=== PATIENT | male | born 1975 | race Caucasian/White ===

== ENCOUNTER 2018-12-15 23:21 | Emergency (ER) | payer OTHER ==
[~2018-12-15] VITALS: Ht 182.9 cm; Wt 113.6 kg
[2018-12-15 23:39] VITALS: BP 184/106
[2018-12-15] MEDS ORDERED: acetaminophen 325mg tablet PO ONE (23:55)
[2018-12-16] MEDS ORDERED: DOXY100C43 PO (00:24)
== END 2018-12-16 01:00 | disposition home or self-care (01) ==
LOC: ER 23:22
DX: S93.492A Sprain of other ligament of left ankle, initial encounter (principal); S90.112A Contusion of left great toe without damage to nail, initial encounter; S30.810A Abrasion of lower back and pelvis, initial encounter; S40.212A Abrasion of left shoulder, initial encounter; J45.909 Unspecified asthma, uncomplicated; Z91.030 Bee allergy status; V19.88XA Pedal cyclist (driver) (passenger) injured in other specified transport accidents, initial encounter; Y93.55 Activity, bike riding; Y92.413 State road as the place of occurrence of the external cause; Y99.9 Unspecified external cause status
CPT/HCPCS: 73610; 73630; 99283

== ENCOUNTER 2019-01-01 18:17 | Inpatient (IN) | payer OTHER, SELFPAY ==
[~2019-01-01] VITALS: Ht 182.9 cm; Wt 135.9 kg
[2019-01-01 19:08] LABS: BASOPHILS # (AUTO) 0.1 X10'3 (0-0.2); BASOPHILS % (AUTO) 0.4 % (0-1); EOSINOPHILS # (AUTO) 0.3 X10'3 (0-0.9); HEMATOCRIT 43.1 % (42.0-52.0); HEMOGLOBIN 14.1 g/dl (14.0-17.9); LYMPHOCYTES # (AUTO) 1.3 X10'3 (1.1-4.8); LYMPHOCYTES % (AUTO) 4.3 % (21-51); MEAN CORPUSCULAR HGB CONC 32.7 g/dL (33.0-36.5); MEAN CORPUSCULAR VOLUME 88.6 FL (78-98); MEAN PLATELET VOLUME 9.5 FL (7.4-10.4); MONOCYTES # (AUTO) 1.1 X10'3 (0-0.9); MONOCYTES % (AUTO) 3.7 % (2-12); NEUTROPHILS # (AUTO) 27.8 X10'3 (1.8-7.7); NEUTROPHILS % (AUTO) 90.6 % (42-75); PLATELET COUNT 573 X10'3 (140-440); RED BLOOD COUNT 4.86 X10'6 (4.70-6.10)
[2019-01-01 19:11] LABS: WHITE BLOOD COUNT 30.7 X10'3 (4.5-11.0)
[2019-01-01] MEDS ORDERED: CefTRIAXone/D5W-Rocephin 1gm 50 ML IV ONE (19:15)
[2019-01-01] MEDS ORDERED: azithromycin/NS 500mg/250ml 250 ML IV ONE (19:15)
[2019-01-01] MEDS ORDERED: normal saline 1000ML IV soln IVB ONE ×2 (19:15→19:45)
[2019-01-01 19:16] LABS: ALANINE AMINOTRANSFERASE 152 U/L (12-78); ALBUMIN 2.3 G/DL (3.4-5.0); ALBUMIN/GLOBULIN RATIO 0.4 (1.1-1.5); ALKALINE PHOSPHATASE 191 IU/L (46-116); ANION GAP 4 (8-16); ASPARTATE AMINO TRANSFERASE 56 U/L (10-37); BILIRUBIN,TOTAL 0.6 MG/DL (0.1-1.0); BLOOD UREA NITROGEN 54 MG/DL (7-18); BUN/CREATININE RATIO 43.5 (5.4-32.0); CALCIUM 9.7 MG/DL (8.5-10.1); CHLORIDE 99 MMOL/L (99-107); CREATININE 1.24 MG/DL (0.60-1.10); GLUCOSE 170 MG/DL (70-104); POTASSIUM 5.1 MMOL/L (3.5-5.1); SODIUM 134 MMOL/L (135-145); TOTAL CARBON DIOXIDE 30.7 MMOL/L (24-32); TOTAL PROTEIN 7.5 G/DL (6.4-8.2); eGFR 64 ML/MIN
[2019-01-01 19:49] LABS: ANISOCYTOSIS 1+; PLATELET ESTIMATE INCREASED; TOTAL CELLS COUNTED 100
[2019-01-01] MEDS ORDERED: diltiazem 5mg/ml 5ml inj. IV ONE ×3 (20:35→23:45)
[2019-01-01 21:42] LABS: CLARITY,URINE CLOUDY (Clear); COLOR,URINE YELLOW (Yellow); GLUCOSE, URINE NEGATIVE (Neg); KETONES,URINE NEGATIVE (Neg); LEUKOCYTE ESTERASE ,URINE NEGATIVE (Neg); NITRITES, URINE NEGATIVE (Neg); OCCULT BLOOD,URINE SMALL (Neg); PROTEIN,URINE 30 mg/dl (Neg); UROBILINOGEN,URINE 0.2 E.U/dL (0.2-1.0)
[2019-01-01 21:57] LABS: UA COLLECTION TYPE NON-SPECIFIED
[2019-01-01 21:58] LABS: AMORPHOUS URATES 4+; BACTERIA,URINE FEW /HPF (Neg); RBC,URINE NONE SEEN /HPF (0-2); SQUAMOUS EPITHELIAL CELL,UR FEW /LPF (FEW); WBC,URINE 0-4 /HPF (0-4)
[2019-01-01 21:59] LABS: URINE AMPHETAMINE SCREEN NEGATIVE (Neg); URINE BARBITUATE SCREEN NEGATIVE (Neg); URINE BENZODIAZEPINES SCREEN NEGATIVE (Neg); URINE CANNABINOID SCREEN NEGATIVE (Neg); URINE COCAINE SCREEN POSITIVE (Neg); URINE METHADONE SCREEN NEGATIVE (Neg); URINE OPIATE SCREEN POSITIVE (Neg); URINE PHENCYCLIDINE SCREEN NEGATIVE (Neg)
[2019-01-01] MEDS ORDERED: morphine 4 MG/ML inj SYRINge IV ONE (22:00)
[2019-01-01] MEDS ORDERED: amiodarone/D5 360MG/200ML BAG 200 ML IV SCH ×2 (22:10→22:13)
[2019-01-01] MEDS ORDERED: amiodarone 150mg/dext, iso-os 100 ML IV ONE (22:10)
[2019-01-01] MEDS ORDERED: ondansetron/PF 4mg/2ml inj IV PRN (22:45)
[2019-01-01] MEDS ORDERED: morphine 2 MG/ML inj. syringe IV PRN (22:45)
[2019-01-01] MEDS ORDERED: mag hydrox/Alum hydrox/simeth 30ml oral suspension PO PRN (22:45)
[2019-01-01] MEDS ORDERED: acetaminophen 325mg tablet PO PRN ×2 (22:45)
[2019-01-01] MEDS ORDERED: HYDROcodone/acetaminophen 5mg/325mg tablet PO PRN (22:45)
[2019-01-01] MEDS: normal saline 1000ml 1,000 ML IV SCH (23:20)
[2019-01-01] MEDS: diltiazem CD 120mg capsule (once-daily) PO SCH (23:20)
--- NOTE | 2019-01-01 23:24 | NUR ---
Patient is not responding to the current Amioderone infusion. His HR is staying right around 155 with the drip. The admitting hospitalist ELEONORA is aware of the patient's condition. no additional orders given
[2019-01-01] MEDS: morphine 2 MG/ML inj. syringe IV PRN (23:28)
--- NOTE | 2019-01-01 23:54 | NUR ---
DR. CREWS WAS MADE AWARE OF PATIETN'S CONDITION, HE ORDERED TO STOP THE AMIODERONE INFUSION AND TO GIVE PATIENT 10MG OF CARDIZEM IV PUSH
[2019-01-02] MEDS ORDERED: HYDROmorphone inj. 0.5 MG/0.5 ML DISP.SYRIN IV ONE (00:05)
[2019-01-02] MEDS ORDERED: METF500T7 PO (00:27)
[2019-01-02] MEDS ORDERED: LOSA1TAB41 PO (00:27)
--- NOTE | 2019-01-02 03:36 | NUR ---
DR CREWS PAGED FOR CRITICAL VALUE 5
[2019-01-02] MEDS ORDERED: morphine 10mg/ml inj. IV ONE (04:00)
--- NOTE | 2019-01-02 04:45 | NUR ---
PATIENT CONTIUES TO GET UP AND DISCONNECT HIMSELF TO WALK TO THE BATHROOM AFTER BEING ADVISED NOT TO DUE TO HIS CONDITION.
[2019-01-02] MEDS: HYDROcodone/acetaminophen 10/325mg tab PO PRN (05:24)
[2019-01-02] MEDS: levoFLOXACIN-Levaquin 250mg/D5 50 ML IV SCH (07:14)
[2019-01-02] MEDS: diltiazem CD 120mg capsule (once-daily) PO SCH (07:14)
[2019-01-02] MEDS: heparin, porcine 5000 units/ml vial SQ SCH ×2 (07:15→20:13)
[2019-01-02] MEDS: morphine 2 MG/ML inj. syringe IV PRN ×5 (07:17→23:48)
--- NOTE | 2019-01-02 08:16 | NUR ---
paged Dr. Jerry regaring patient's HR ranges 100-160's still on afib,denies cp but + pleuritic pain managed with morphine.
[2019-01-02 08:28] LABS: BASOPHILS # (AUTO) 0.1 X10'3 (0-0.2); BASOPHILS % (AUTO) 0.4 % (0-1); EOSINOPHILS # (AUTO) 0.3 X10'3 (0-0.9); EOSINOPHILS % (AUTO) 1.2 % (0-6); HEMATOCRIT 39.4 % (42.0-52.0); LYMPHOCYTES # (AUTO) 1.2 X10'3 (1.1-4.8); LYMPHOCYTES % (AUTO) 4.4 % (21-51); MEAN CORPUSCULAR HEMOGLOBIN 28.8 PG (27.0-31.0); MEAN CORPUSCULAR VOLUME 87.4 FL (78-98); MEAN PLATELET VOLUME 9.1 FL (7.4-10.4); MONOCYTES # (AUTO) 1.4 X10'3 (0-0.9); MONOCYTES % (AUTO) 5.1 % (2-12); NEUTROPHILS # (AUTO) 24.9 X10'3 (1.8-7.7); NEUTROPHILS % (AUTO) 88.9 % (42-75); PLATELET COUNT 484 X10'3 (140-440); RED CELL DISTRIBUTION WIDTH 16.9 % (11.5-14.5)
[2019-01-02 08:40] LABS: ALANINE AMINOTRANSFERASE 119 U/L (12-78); ALBUMIN/GLOBULIN RATIO 0.4 (1.1-1.5); ALKALINE PHOSPHATASE 104 IU/L (46-116); ANION GAP 6 (8-16); ASPARTATE AMINO TRANSFERASE 47 U/L (10-37); BILIRUBIN,TOTAL 0.6 MG/DL (0.1-1.0); BLOOD UREA NITROGEN 35 MG/DL (7-18); BUN/CREATININE RATIO 37.6 (5.4-32.0); CALCIUM 8.4 MG/DL (8.5-10.1); CHLORIDE 102 MMOL/L (99-107); CREATININE 0.93 MG/DL (0.60-1.10); GLUCOSE 157 MG/DL (70-104); SODIUM 134 MMOL/L (135-145); TOTAL CARBON DIOXIDE 26.3 MMOL/L (24-32); TOTAL PROTEIN 6.6 G/DL (6.4-8.2); eGFR 89 ML/MIN
[2019-01-02] MEDS: normal saline 1000ml 1,000 ML IV SCH ×2 (08:43→18:43)
--- NOTE | 2019-01-02 09:38 | NUR ---
paged Dr. Jerry again since pt hr still 100-160's.
--- NOTE | 2019-01-02 09:40 | NUR ---
pt up to the bathroom.
[2019-01-02] MEDS: magnesium hydroxide 30ml (MOM) UD suspension PO PRN (09:51)
[2019-01-02] MEDS: vancomycin/NS 1 GM ADD-VANTAGE 250 ML IV SCH ×2 (09:51→12:13)
[2019-01-02] MEDS: piperacillin/tazo 4.5gm/100ml 100 ML IV SCH ×4 (09:51→23:48)
[2019-01-02] MEDS: diltiazem-NS 100mg/100ml 100 ML IV SCH (10:10)
[2019-01-02] MEDS ORDERED: iohexol 350MG/ML 100ml bottle IV ONE (12:07)
--- NOTE | 2019-01-02 12:20 | NUR ---
paged dr. acharya to change rate for greg hammond.
--- NOTE | 2019-01-02 12:31 | NUR ---
SPOKE TO DR IZAGUIRRE ORDERED CARDIZEM DRIP CHANGED TO 7.5ML/HOUR.
--- NOTE | 2019-01-02 13:30 | NUR ---
pt arrived to floor in stable condition, in aflutter, lungs diminished in bases, abdomen distended and firm, on cardizem @ 5, o2 3l nc, at bedside. pt placed on mobile. pt oriented to room, bed in low position, call light in reach. upon assessment pt has a scab on left elbow, genitalia reddened and edematous. pt has a blue ring on base of penis, upon asking pt he states that his "cock ring never comes off" pt unwilling to take it off at this time.
[2019-01-02 13:35] VITALS: BP 115/74
[2019-01-02 15:00] VITALS: BP 137/56
--- NOTE | 2019-01-02 15:57 | NUR ---
asked pt again about removing the ring on his penis. he states it has been on for 5 years and never has had a problem. he does not want it removed. he is refusing to have it removed at this time.
[2019-01-02 17:00] VITALS: BP 131/86
--- NOTE | 2019-01-02 17:11 | NUR ---
per HEIKE Aranda in IR they will do soy tomorrow, hold pm heparin Addendum: 01/02/19 at 1717 by Jennifer Taveras RN hold am heparin, not pm
[2019-01-02 18:00] VITALS: BP 141/89
--- NOTE | 2019-01-02 18:20 | NUR ---
Problems reprioritized. Patient report given, questions answered & plan of care reviewed with HEIKE Thurston.
--- NOTE | 2019-01-02 18:35 | NUR ---
orientee documentation: I have reviewed and agree with all interventions, assessments performed and documented by HEIKE Duque .
--- NOTE | 2019-01-02 19:40 | NUR ---
PAGER ID: [phone] MESSAGE: re: Fer tellez [id number]. would like another dose of milk of mag for constipation.
[2019-01-02 22:00] VITALS: BP 114/62
[2019-01-03] VITALS (25 sets, daily range): BP systolic 120–169; BP diastolic 57–122
[2019-01-03] MEDS: HYDROcodone/acetaminophen 10/325mg tab PO PRN (01:35)
[2019-01-03] MEDS: diltiazem-NS 100mg/100ml 100 ML IV SCH ×3 (03:44→21:11)
[2019-01-03] MEDS: normal saline 1000ml 1,000 ML IV SCH (04:43)
--- NOTE | 2019-01-03 05:00 | NUR ---
Paged regarding pt's high sustained heart rate. Pt up to the bathroom multiple times tonight for long periods.
[2019-01-03] MEDS: morphine 2 MG/ML inj. syringe IV PRN ×5 (05:30→23:56)
[2019-01-03 06:11] LABS: BASOPHILS # (AUTO) 0.1 X10'3 (0-0.2); BASOPHILS % (AUTO) 0.4 % (0-1); EOSINOPHILS # (AUTO) 0.6 X10'3 (0-0.9); HEMOGLOBIN 13.5 g/dl (14.0-17.9); LYMPHOCYTES # (AUTO) 1.3 X10'3 (1.1-4.8); LYMPHOCYTES % (AUTO) 4.7 % (21-51); MEAN CORPUSCULAR HEMOGLOBIN 29.4 PG (27.0-31.0); MEAN CORPUSCULAR HGB CONC 33.1 g/dL (33.0-36.5); MEAN CORPUSCULAR VOLUME 88.8 FL (78-98); MEAN PLATELET VOLUME 9.2 FL (7.4-10.4); MONOCYTES # (AUTO) 1.2 X10'3 (0-0.9); MONOCYTES % (AUTO) 4.2 % (2-12); NEUTROPHILS # (AUTO) 25.1 X10'3 (1.8-7.7); NEUTROPHILS % (AUTO) 88.7 % (42-75); PLATELET COUNT 463 X10'3 (140-440); RED BLOOD COUNT 4.61 X10'6 (4.70-6.10); RED CELL DISTRIBUTION WIDTH 17.2 % (11.5-14.5)
--- NOTE | 2019-01-03 06:11 | NUR ---
PAGER ID: [phone] MESSAGE: re: Fer Carlsop [id number]. heart rate remains in the 150s.
[2019-01-03] MEDS ORDERED: diltiazem 5mg/ml 5ml inj. IV ONE ×2 (06:15→09:20)
[2019-01-03 06:16] LABS: WHITE BLOOD COUNT 28.3 X10'3 (4.5-11.0)
--- NOTE | 2019-01-03 06:16 | NUR ---
PAGER ID: [phone] MESSAGE: re: Fer tellez. wbc 20.3
[2019-01-03 06:33] LABS: ALANINE AMINOTRANSFERASE 116 U/L (12-78); ALBUMIN 2.1 G/DL (3.4-5.0); ALBUMIN/GLOBULIN RATIO 0.4 (1.1-1.5); ALKALINE PHOSPHATASE 107 IU/L (46-116); ANION GAP 5 (8-16); ASPARTATE AMINO TRANSFERASE 48 U/L (10-37); BILIRUBIN,TOTAL 0.6 MG/DL (0.1-1.0); BLOOD UREA NITROGEN 24 MG/DL (7-18); BUN/CREATININE RATIO 24.2 (5.4-32.0); CALCIUM 9.8 MG/DL (8.5-10.1); CHLORIDE 102 MMOL/L (99-107); CREATININE 0.99 MG/DL (0.60-1.10); GLUCOSE 164 MG/DL (70-104); POTASSIUM 5.2 MMOL/L (3.5-5.1); SODIUM 137 MMOL/L (135-145); TOTAL CARBON DIOXIDE 30.3 MMOL/L (24-32); eGFR 83 ML/MIN
[2019-01-03 06:50] LABS: TOTAL CELLS COUNTED 100
[2019-01-03 06:51] LABS: PLATELET ESTIMATE INCREASED
[2019-01-03 06:52] LABS: ANISOCYTOSIS 1+; TOXIC GRANULATION 1+
--- NOTE | 2019-01-03 07:00 | NUR ---
received report from Rian Thurston. pt currently in aflutter rapid rate, Karena got order for cardizem 10mg push, pt on cardizem gtt @ 5. went in to see pt. i asked him if he had used any drugs this am, pt admitted that he used cocaine this am, I asked him if he had any more and he said he had a small amount and a percocet. pt gave me a small glass vial with white powder in it and a white pill he said was percocet. educated pt in detail about the use of drugs and his unstable medical condition. security was called and glass vial with white powder in it and white pill given to security. security in to see pt. they went through his belongings and no other drugs were found.
--- NOTE | 2019-01-03 07:12 | NUR ---
PAGER ID: [phone] MESSAGE: aditi kimberly [phone] please call me re Fer tellez HR sustaining 150's despite Cardizem gtt and push. please call so I can explain full sitiuation
[2019-01-03] MEDS: diltiazem CD 120mg capsule (once-daily) PO SCH (07:22)
--- NOTE | 2019-01-03 07:30 | NUR ---
Dr. Aparicio in to see pt. she is aware of pts drug use and current condition. RN in room with MD. pt refusing to let us examine his genetalia.
[2019-01-03] MEDS: heparin, porcine 5000 units/ml vial SQ SCH ×2 (08:00→19:32)
--- NOTE | 2019-01-03 08:03 | NUR ---
PAGER ID: [phone] MESSAGE: aditi [email or web address] can I bring ekg to you to review on geoff please
[2019-01-03] MEDS: levoFLOXACIN-Levaquin 250mg/D5 50 ML IV SCH (09:00)
[2019-01-03] MEDS: piperacillin/tazo 4.5gm/100ml 100 ML IV SCH ×3 (09:00→23:55)
[2019-01-03 09:14] LABS: GLUCOSE,BODY FLUID 79 MG/DL
[2019-01-03 09:21] LABS: LYMPHOCYTES,BODY FLUID 1 %; MONOCYTES,BODY FLUID 3 %; NEUTROPHILS,BODY FLUID 96 %
[2019-01-03 09:22] LABS: BF RBC COUNT 1450 /CU MM; BF WBC COUNT 1180 /CU MM (0-1000); BFAPPEAR HAZY; BFCOLOR YELLOW; BFVOLUME 33 ML
--- NOTE | 2019-01-03 10:51 | NUR ---
PAGER ID: [phone] MESSAGE: aditi rosa [phone] Fer tellez HR still sustaining 110's -140's after 2nd push of cardizem
[2019-01-03] MEDS ORDERED: metoprolol tartrate 25mg tablet PO SCH (11:19)
--- NOTE | 2019-01-03 12:32 | NUR ---
Initial: Pt admit with sepsis with multifocal pneumonia. Pt seen at bedside provided with verbal protein education only as pt declined written protein education stating he "knows all about protein". Pt currently on a regular diet with documented 100% PO intake x 1 meal. Pt endorses a good appetite stating he's still hungry following meals, pt agreeable to double protein TID, d/w dietary. Pt denies food allergies and reports some difficulty chewing, pt requests ground food, d/w dietary. Documented LBM 01/03 however pt reports LBM 01/02. RD contact information provided. Will continue to follow. Recommendations: 1) Continue with regular diet 2) Double protein TID 3) Grind all food d/t difficulty chewing per pt request 4) Wt per rx Addendum: 01/03/19 at [address] Amended: Links added.
[2019-01-03] MEDS ORDERED: MESSAGE TO PHARMACY PO ONE (13:40)
[2019-01-03] MEDS ORDERED: dextrose ORAL solution 15 GM/59 ML bottle PO PRN ×2 (13:40)
[2019-01-03] MEDS ORDERED: dextrose 50%-water 50ml dispensing syringe IV PRN ×2 (13:40)
[2019-01-03] MEDS ORDERED: glucagon, human recombinant 1mg kit SUBCUT PRN (13:40)
[2019-01-03 14:04] LABS: HEMOGLOBIN A1C 6.9 % (4.5-6.2)
[2019-01-03] MEDS: HYDROchlorothiazide 12.5mg capsule PO SCH (15:09)
[2019-01-03] MEDS: losartan 50mg tablet PO SCH (15:09)
--- NOTE | 2019-01-03 15:38 | NUR ---
pt told me he taken steroids at home tesnoester 150mg injection daily and trenacetate 150mg mg injectable daily. Dr. Aparicio notified and no orders received PAGER ID: [phone] MESSAGE: aditi rosa [phone] Fer tellez said he takes daily injectable steroids. could this be playing a factor being off?
--- NOTE | 2019-01-03 17:37 | NUR ---
paged dr canseco PAGER ID: [phone] MESSAGE: aditi rosa [phone] Fer miranda HR sustaining 150's x 15min
--- NOTE | 2019-01-03 18:12 | NUR ---
paged dr. canseco PAGER ID: [phone] MESSAGE: aditi kimberly [phone] geoff HR sustaining 150's, also can he have Ativan or something like that? and can change diet to carb control?
--- NOTE | 2019-01-03 18:20 | NUR ---
dr. aparicio notified pt sustaining heart rate 150's. per Dr. Aparicio she has given lots of meds and not ordering any others for heart rate at this time. she does want to order ativan 0.5 iv q6hrs prn
--- NOTE | 2019-01-03 18:46 | NUR ---
Problems reprioritized. Patient report given, questions answered & plan of care reviewed with HEIKE COLE.
--- NOTE | 2019-01-03 18:52 | NUR ---
Patient in room PCU 3027. I have received report from Jennifer BURROUGHS and had the opportunity to ask questions and assume patient care.
[2019-01-03] MEDS ORDERED: VANCOMYCIN LEVEL IV ONE (19:30)
[2019-01-03] MEDS: LORazepam 2 mg/ml vial IV PRN (19:30)
[2019-01-03] MEDS: metoprolol tartrate 50mg tablet PO SCH (19:33)
[2019-01-03] MEDS: insulin glargine (Lantus) pen - multi-dose SQ SCH (21:00)
[2019-01-04] VITALS (9 sets, daily range): BP systolic 105–145; BP diastolic 46–107
[2019-01-04] MEDS: LORazepam 2 mg/ml vial IV PRN ×4 (01:34→22:33)
[2019-01-04] MEDS: morphine 2 MG/ML inj. syringe IV PRN ×4 (05:04→23:22)
[2019-01-04 05:21] LABS: BASOPHILS # (AUTO) 0.1 X10'3 (0-0.2); BASOPHILS % (AUTO) 0.4 % (0-1); EOSINOPHILS # (AUTO) 0.5 X10'3 (0-0.9); HEMATOCRIT 40.8 % (42.0-52.0); HEMOGLOBIN 13.7 g/dl (14.0-17.9); LYMPHOCYTES # (AUTO) 1.1 X10'3 (1.1-4.8); LYMPHOCYTES % (AUTO) 4.1 % (21-51); MEAN CORPUSCULAR HEMOGLOBIN 29.5 PG (27.0-31.0); MEAN CORPUSCULAR HGB CONC 33.5 g/dL (33.0-36.5); MEAN PLATELET VOLUME 9.4 FL (7.4-10.4); MONOCYTES # (AUTO) 1.4 X10'3 (0-0.9); MONOCYTES % (AUTO) 5.5 % (2-12); NEUTROPHILS # (AUTO) 22.8 X10'3 (1.8-7.7); PLATELET COUNT 446 X10'3 (140-440); RED BLOOD COUNT 4.63 X10'6 (4.70-6.10); RED CELL DISTRIBUTION WIDTH 16.9 % (11.5-14.5)
[2019-01-04 05:27] LABS: WHITE BLOOD COUNT 25.9 X10'3 (4.5-11.0)
[2019-01-04 05:46] LABS: ALANINE AMINOTRANSFERASE 110 U/L (12-78); ALBUMIN 1.9 G/DL (3.4-5.0); ALBUMIN/GLOBULIN RATIO 0.4 (1.1-1.5); ALKALINE PHOSPHATASE 107 IU/L (46-116); ANION GAP 6 (8-16); ASPARTATE AMINO TRANSFERASE 49 U/L (10-37); BILIRUBIN,TOTAL 0.6 MG/DL (0.1-1.0); BLOOD UREA NITROGEN 19 MG/DL (7-18); BUN/CREATININE RATIO 22.6 (5.4-32.0); CALCIUM 9.2 MG/DL (8.5-10.1); CHLORIDE 101 MMOL/L (99-107); CREATININE 0.84 MG/DL (0.60-1.10); GLUCOSE 194 MG/DL (70-104); POTASSIUM 4.7 MMOL/L (3.5-5.1); SODIUM 133 MMOL/L (135-145); TOTAL CARBON DIOXIDE 25.6 MMOL/L (24-32); TOTAL PROTEIN 6.9 G/DL (6.4-8.2); eGFR > 90 ML/MIN
[2019-01-04 05:52] LABS: TOTAL CELLS COUNTED 100
[2019-01-04 05:53] LABS: ANISOCYTOSIS 1+; PLATELET ESTIMATE INCREASED; TOXIC GRANULATION 1+
--- NOTE | 2019-01-04 06:18 | NUR ---
Patient in room PCU 3027. I have received report from Mari BURROUGHS and had the opportunity to ask questions and assume patient care.
--- NOTE | 2019-01-04 06:23 | NUR ---
Problems reprioritized. Patient report given, questions answered & plan of care reviewed with Rosemarie BURROUGHS.
[2019-01-04] MEDS: HYDROchlorothiazide 12.5mg capsule PO SCH (07:42)
[2019-01-04] MEDS: losartan 50mg tablet PO SCH (07:42)
[2019-01-04] MEDS: metoprolol tartrate 50mg tablet PO SCH ×2 (07:42→19:15)
[2019-01-04] MEDS: heparin, porcine 5000 units/ml vial SQ SCH ×2 (07:43→19:14)
[2019-01-04] MEDS: levoFLOXACIN-Levaquin 250mg/D5 50 ML IV SCH (07:43)
[2019-01-04] MEDS: piperacillin/tazo 4.5gm/100ml 100 ML IV SCH ×4 (09:26→23:22)
[2019-01-04] MEDS: diltiazem-NS 100mg/100ml 100 ML IV SCH ×3 (10:22→22:33)
[2019-01-04] MEDS: HYDROcodone/acetaminophen 10/325mg tab PO PRN ×3 (10:22→21:45)
--- NOTE | 2019-01-04 14:00 | NUR ---
Patient refused AM and afternoon insulin coverage, stating "I take metformin at home and don't want to get hooked on that insulin stuff." Patient educated provided, patient states he will reconsider accepting insulin depending on his next Accucheck result. Will continue to monitor patient and re-educate as needed.
[2019-01-04] MEDS: diltiazem 30mg tablet PO SCH ×2 (14:32→19:14)
[2019-01-04] MEDS: magnesium hydroxide 30ml (MOM) UD suspension PO PRN (16:15)
--- NOTE | 2019-01-04 17:37 | NUR ---
Page sent to Dr. Stephen: PAGER ID: [phone] MESSAGE: [phone] Fer Villarreal: Patient is wheezy, he has a nebulizer at home. Can I order respiratory treatments? Thanks, Rosemarie [phone]
[2019-01-04] MEDS: lactobacillus rhamnosus 10,000 MMU CELLS/CAPSULE PO SCH (19:15)
[2019-01-04] MEDS: insulin Lispro (HumaLOG) vial - multi-dose SQ SCH (19:37)
[2019-01-04] MEDS: albuterol 2.5 MG/3 ML nebule NEB PRN (21:03)
[2019-01-04] MEDS: insulin glargine (Lantus) pen - multi-dose SQ SCH (21:48)
[2019-01-05] VITALS (12 sets, daily range): BP systolic 119–163; BP diastolic 54–92
[2019-01-05] MEDS: diltiazem 30mg tablet PO SCH ×3 (01:47→16:30)
[2019-01-05] MEDS: HYDROcodone/acetaminophen 10/325mg tab PO PRN ×3 (02:30→17:19)
--- NOTE | 2019-01-05 03:05 | NUR ---
Problems reprioritized. Patient report given, questions answered & plan of care reviewed with Lolly BURROUGHS
[2019-01-05] MEDS: albuterol 2.5 MG/3 ML nebule NEB PRN ×2 (04:33→17:41)
[2019-01-05] MEDS: LORazepam 2 mg/ml vial IV PRN ×3 (04:47→22:11)
[2019-01-05] MEDS: morphine 2 MG/ML inj. syringe IV PRN ×4 (04:47→19:32)
--- NOTE | 2019-01-05 06:30 | NUR ---
Patient in room PCU 3027. I have received report from HEIKE Ambrocio and had the opportunity to ask questions and assume patient care. Pt awake. Significant other at bedside. IV running. Will continue to monitor and assess.
[2019-01-05] MEDS: levoFLOXACIN-Levaquin 250mg/D5 50 ML IV SCH (07:08)
[2019-01-05] MEDS: piperacillin/tazo 4.5gm/100ml 100 ML IV SCH ×2 (07:08→16:31)
[2019-01-05] MEDS: lactobacillus rhamnosus 10,000 MMU CELLS/CAPSULE PO SCH ×2 (07:09→19:33)
[2019-01-05] MEDS: HYDROchlorothiazide 12.5mg capsule PO SCH (07:10)
[2019-01-05] MEDS: metoprolol tartrate 50mg tablet PO SCH ×2 (07:10→19:33)
[2019-01-05] MEDS: losartan 50mg tablet PO SCH (07:10)
[2019-01-05] MEDS: heparin, porcine 5000 units/ml vial SQ SCH ×2 (07:12→19:37)
[2019-01-05] MEDS ORDERED: VANCOMYCIN LEVEL IV ONE (07:30)
[2019-01-05 07:57] LABS: BASOPHILS # (AUTO) 0.1 X10'3 (0-0.2); BASOPHILS % (AUTO) 0.5 % (0-1); EOSINOPHILS # (AUTO) 0.5 X10'3 (0-0.9); EOSINOPHILS % (AUTO) 2.5 % (0-6); HEMOGLOBIN 12.5 g/dl (14.0-17.9); LYMPHOCYTES # (AUTO) 0.9 X10'3 (1.1-4.8); LYMPHOCYTES % (AUTO) 4.1 % (21-51); MEAN CORPUSCULAR HEMOGLOBIN 29.2 PG (27.0-31.0); MEAN CORPUSCULAR VOLUME 88.6 FL (78-98); MEAN PLATELET VOLUME 8.7 FL (7.4-10.4); MONOCYTES # (AUTO) 1.2 X10'3 (0-0.9); MONOCYTES % (AUTO) 5.6 % (2-12); NEUTROPHILS # (AUTO) 18.3 X10'3 (1.8-7.7); NEUTROPHILS % (AUTO) 87.3 % (42-75); PLATELET COUNT 423 X10'3 (140-440); RED BLOOD COUNT 4.28 X10'6 (4.70-6.10); RED CELL DISTRIBUTION WIDTH 16.9 % (11.5-14.5)
[2019-01-05 08:18] LABS: ALANINE AMINOTRANSFERASE 106 U/L (12-78); ALBUMIN 1.9 G/DL (3.4-5.0); ALBUMIN/GLOBULIN RATIO 0.4 (1.1-1.5); ALKALINE PHOSPHATASE 98 IU/L (46-116); ANION GAP 3 (8-16); ASPARTATE AMINO TRANSFERASE 35 U/L (10-37); BILIRUBIN,TOTAL 0.5 MG/DL (0.1-1.0); BLOOD UREA NITROGEN 19 MG/DL (7-18); BUN/CREATININE RATIO 21.6 (5.4-32.0); CALCIUM 9.2 MG/DL (8.5-10.1); CHLORIDE 101 MMOL/L (99-107); CREATININE 0.88 MG/DL (0.60-1.10); GLUCOSE 221 MG/DL (70-104); POTASSIUM 4.6 MMOL/L (3.5-5.1); SODIUM 135 MMOL/L (135-145); TOTAL CARBON DIOXIDE 30.8 MMOL/L (24-32); TOTAL PROTEIN 6.4 G/DL (6.4-8.2); eGFR > 90 ML/MIN
[2019-01-05 08:19] LABS: VANCOMYCIN,TROUGH 9.2 UG/ML (6.0-14.0)
[2019-01-05] MEDS: insulin Lispro (HumaLOG) vial - multi-dose SQ SCH ×2 (09:28→18:58)
--- NOTE | 2019-01-05 13:06 | NUR ---
Sent to Dr Stephen PAGER ID: [phone] MESSAGE: RE: Fer Villarreal [phone]. HR maintaining above 150 bpm. About to take pt to radiology. Please advise. -Cleo [phone]
[2019-01-05] MEDS: diltiazem-NS 100mg/100ml 100 ML IV SCH ×2 (15:15→22:07)
--- NOTE | 2019-01-05 17:51 | NUR ---
PAGER ID: [phone] MESSAGE: Jailene BURROUGHS ext [phone] CAMILLE Boyle still has HR 150's even after Drip started and PO given. thank you
--- NOTE | 2019-01-05 18:00 | NUR ---
Patient in room PCU 3027. I have received report from Cleo Dent RN and had the opportunity to ask questions and assume patient care.
--- NOTE | 2019-01-05 18:22 | NUR ---
Spoke with Dr Stephen, increased Cardizem drip to 8mls/hr per MD order
--- NOTE | 2019-01-05 18:24 | NUR ---
Problems reprioritized. Patient report given, questions answered & plan of care reviewed with Padmini BURROUGHS. Patient stable at transfer of care. .
[2019-01-05] MEDS: linezolid 600mg/300ml PREMIX 300 ML IV SCH (19:38)
[2019-01-05] MEDS ORDERED: diltiazem 5mg/ml 5ml inj. IV ONE (20:25)
[2019-01-05] MEDS: insulin glargine (Lantus) pen - multi-dose SQ SCH (21:05)
--- NOTE | 2019-01-05 22:22 | NUR ---
Manually clicked administer to give ativan due to accidental throwing away of vial. HEIKE Hodges witnessed waist of vial and med.
[2019-01-06] VITALS (10 sets, daily range): BP systolic 124–155; BP diastolic 56–125
--- NOTE | 2019-01-06 | NUR ---
Spoke with Juan Jose about pt's HR being in 160's. He advised to increase drip to 10mg/hr and give a 10mg cardizem push. Shortly after speaking with him, pt's hr went down to 110-120. Held Cardizem, spoke with Dr. Ingram around 0130 and he advised to give the push and increase the drip.
[2019-01-06] MEDS: diltiazem 30mg tablet PO SCH ×4 (00:38→23:56)
[2019-01-06] MEDS: HYDROcodone/acetaminophen 10/325mg tab PO PRN ×5 (00:39→22:08)
[2019-01-06] MEDS: piperacillin/tazo 4.5gm/100ml 100 ML IV SCH ×3 (00:42→15:48)
[2019-01-06] MEDS: albuterol 2.5 MG/3 ML nebule NEB PRN ×3 (00:46→20:35)
[2019-01-06] MEDS: diltiazem-NS 100mg/100ml 100 ML IV SCH ×2 (01:06→22:01)
[2019-01-06] MEDS: morphine 2 MG/ML inj. syringe IV PRN ×4 (04:48→20:30)
--- NOTE | 2019-01-06 05:57 | NUR ---
Spoke with Dr. Ingram around 0500 informed him that patients HR has sustained in 80's for about 4 hrs. He advised to decrease cardizem drip to 5mg/hr.
--- NOTE | 2019-01-06 05:59 | NUR ---
Orientee documentation: I have reviewed and agree with all interventions, assessments performed and documented by Alexa BURROUGHS. Medication Administration: For this medication-pass time frame, all medication were reviewed, dispensed, administered and documented per hospital policy by .
--- NOTE | 2019-01-06 06:23 | NUR ---
Problems reprioritized. Patient report given, questions answered & plan of care reviewed with romie Houston.
[2019-01-06] MEDS: magnesium hydroxide 30ml (MOM) UD suspension PO PRN (08:12)
[2019-01-06] MEDS: levoFLOXACIN-Levaquin 250mg/D5 50 ML IV SCH (08:13)
[2019-01-06] MEDS: metoprolol tartrate 50mg tablet PO SCH ×2 (08:13→20:31)
[2019-01-06] MEDS: LORazepam 2 mg/ml vial IV PRN ×3 (08:13→22:07)
[2019-01-06] MEDS: losartan 50mg tablet PO SCH (08:13)
[2019-01-06] MEDS: HYDROchlorothiazide 12.5mg capsule PO SCH (08:13)
[2019-01-06] MEDS: linezolid 600mg/300ml PREMIX 300 ML IV SCH (08:13)
[2019-01-06] MEDS: heparin, porcine 5000 units/ml vial SQ SCH ×2 (08:14→20:30)
[2019-01-06] MEDS: lactobacillus rhamnosus 10,000 MMU CELLS/CAPSULE PO SCH ×2 (08:15→20:30)
[2019-01-06] MEDS: insulin Lispro (HumaLOG) vial - multi-dose SQ SCH ×3 (08:36→18:59)
[2019-01-06 09:32] LABS: BASOPHILS # (AUTO) 0.1 X10'3 (0-0.2); BASOPHILS % (AUTO) 0.3 % (0-1); EOSINOPHILS # (AUTO) 0.4 X10'3 (0-0.9); EOSINOPHILS % (AUTO) 2.1 % (0-6); HEMATOCRIT 39.2 % (42.0-52.0); HEMOGLOBIN 13.1 g/dl (14.0-17.9); LYMPHOCYTES # (AUTO) 0.7 X10'3 (1.1-4.8); LYMPHOCYTES % (AUTO) 4.2 % (21-51); MEAN CORPUSCULAR HEMOGLOBIN 29.9 PG (27.0-31.0); MEAN CORPUSCULAR HGB CONC 33.5 g/dL (33.0-36.5); MEAN CORPUSCULAR VOLUME 89.2 FL (78-98); MEAN PLATELET VOLUME 8.8 FL (7.4-10.4); MONOCYTES # (AUTO) 1.1 X10'3 (0-0.9); MONOCYTES % (AUTO) 6.5 % (2-12); NEUTROPHILS # (AUTO) 14.9 X10'3 (1.8-7.7); NEUTROPHILS % (AUTO) 86.9 % (42-75); PLATELET COUNT 389 X10'3 (140-440); RED CELL DISTRIBUTION WIDTH 16.9 % (11.5-14.5); WHITE BLOOD COUNT 17.1 X10'3 (4.5-11.0)
[2019-01-06 09:38] LABS: ANION GAP 2 (8-16); BLOOD UREA NITROGEN 15 MG/DL (7-18); BUN/CREATININE RATIO 19.7 (5.4-32.0); CHLORIDE 100 MMOL/L (99-107); CREATININE 0.76 MG/DL (0.60-1.10); GLUCOSE 230 MG/DL (70-104); MAGNESIUM 1.4 MG/DL (1.5-2.4); POTASSIUM 4.7 MMOL/L (3.5-5.1); SODIUM 132 MMOL/L (135-145); TOTAL CARBON DIOXIDE 30.4 MMOL/L (24-32); eGFR > 90 ML/MIN
--- NOTE | 2019-01-06 12:40 | NUR ---
osiel consult: Pt seen by GUDELIA for written/verbal zyvox ed w/ RD contact information provided. Pt has outside food brought in at beside; RD encouraged following diet guidelines to avoid potential hypertension. Addendum: 01/06/19 at [address] Amended: Links added.
--- NOTE | 2019-01-06 16:13 | NUR ---
Sent page to Dr. Stephen: PAGER ID: [phone] MESSAGE: [phone] Fer Villarreal: HR is up in the 150's 160's after the patient went to the bathroom, HR has been in the 80's all day. I'm suspicious that he used cocaine. Can we get a tox screen possibly? Thanks, Rosemarie [phone]
[2019-01-06] MEDS ORDERED: diltiazem-NS 100mg/100ml 100 ML IV SCH ×3 (17:50)
[2019-01-06] MEDS ORDERED: potassium CL 10mEq/100ml bag 100 ML IV PRN (18:10)
[2019-01-06] MEDS ORDERED: magnesium 2GM in 50ml NS 50 ML IV PRN (18:10)
[2019-01-06] MEDS ORDERED: magnesium 4gm in 100ml NS 100 ML IV PRN (18:10)
[2019-01-06] MEDS ORDERED: potassium Cl 20 mEq SR tablet PO PRN ×2 (18:10)
--- NOTE | 2019-01-06 18:37 | NUR ---
Orientee documentation: I have reviewed and agree with all interventions, assessments performed and documented by Laura BURROUGHS. Orientee Medication Administration: For this medication-pass time frame, all medication were reviewed, dispensed, administered and documented per hospital policy by Laura BURROUGHS
[2019-01-06] MEDS: furosemide 20 MG/2 ML vial IV SCH (20:29)
[2019-01-06] MEDS: linezolid 600mg tablet PO SCH (20:30)
[2019-01-06] MEDS: magnesium Cl slow-release 64mg tablet PO PRN ×2 (20:39→23:56)
[2019-01-06] MEDS: insulin glargine (Lantus) pen - multi-dose SQ SCH (20:57)
--- NOTE | 2019-01-06 21:40 | NUR ---
DR. NORTON NOTIFIED OF HEART RATE OF 150'S X'S 45 MINUTES--ORDERS RECEIVED
[2019-01-06] MEDS ORDERED: diltiazem 5mg/ml 5ml inj. IV ONE (21:45)
[2019-01-07] VITALS (10 sets, daily range): BP systolic 85–152; BP diastolic 40–95
[2019-01-07] MEDS: piperacillin/tazo 4.5gm/100ml 100 ML IV SCH ×3 (00:43→16:00)
[2019-01-07] MEDS: morphine 2 MG/ML inj. syringe IV PRN ×3 (00:43→12:21)
[2019-01-07] MEDS: HYDROcodone/acetaminophen 10/325mg tab PO PRN ×3 (02:09→12:49)
[2019-01-07] MEDS: albuterol 2.5 MG/3 ML nebule NEB PRN ×2 (04:06→13:11)
[2019-01-07] MEDS: LORazepam 2 mg/ml vial IV PRN ×2 (05:11→10:46)
[2019-01-07 05:48] LABS: BASOPHILS # (AUTO) 0.1 X10'3 (0-0.2); BASOPHILS % (AUTO) 0.7 % (0-1); EOSINOPHILS # (AUTO) 0.4 X10'3 (0-0.9); EOSINOPHILS % (AUTO) 2.4 % (0-6); HEMATOCRIT 38.2 % (42.0-52.0); HEMOGLOBIN 12.8 g/dl (14.0-17.9); LYMPHOCYTES # (AUTO) 0.9 X10'3 (1.1-4.8); LYMPHOCYTES % (AUTO) 5.3 % (21-51); MEAN CORPUSCULAR HEMOGLOBIN 29.4 PG (27.0-31.0); MEAN CORPUSCULAR HGB CONC 33.5 g/dL (33.0-36.5); MEAN CORPUSCULAR VOLUME 87.9 FL (78-98); MEAN PLATELET VOLUME 8.8 FL (7.4-10.4); MONOCYTES # (AUTO) 1.1 X10'3 (0-0.9); MONOCYTES % (AUTO) 6.9 % (2-12); NEUTROPHILS % (AUTO) 84.7 % (42-75); PLATELET COUNT 365 X10'3 (140-440); RED BLOOD COUNT 4.35 X10'6 (4.70-6.10); RED CELL DISTRIBUTION WIDTH 16.7 % (11.5-14.5); WHITE BLOOD COUNT 16.5 X10'3 (4.5-11.0)
--- NOTE | 2019-01-07 06:00 | NUR ---
Patient in room PCU 3027. I have received report from HEIKE De Souza and had the opportunity to ask questions and assume patient care.
[2019-01-07 06:40] LABS: ALBUMIN 2.1 G/DL (3.4-5.0); ANION GAP 7 (8-16); BLOOD UREA NITROGEN 16 MG/DL (7-18); BUN/CREATININE RATIO 17.4 (5.4-32.0); CALCIUM 9.1 MG/DL (8.5-10.1); CHLORIDE 100 MMOL/L (99-107); CREATININE 0.92 MG/DL (0.60-1.10); GLUCOSE 228 MG/DL (70-104); MAGNESIUM 1.5 MG/DL (1.5-2.4); POTASSIUM 4.4 MMOL/L (3.5-5.1); SODIUM 135 MMOL/L (135-145); TOTAL CARBON DIOXIDE 28.2 MMOL/L (24-32); eGFR 90 ML/MIN
[2019-01-07] MEDS: diltiazem-NS 100mg/100ml 100 ML IV SCH (06:52)
--- NOTE | 2019-01-07 08:00 | NUR ---
Pt on Cardizem drip, will need to infuse IV Zosyn, notified patient of need to place new IV for Zosyn infusion. Pt refusing new IV at this time, states that he wants to talk to the doctor. Addendum: 01/07/19 at 1924 by Dayna Zarate RN 09 Notified of patient refusal of new IV, running cardizem at this time, cannot run zosyn. Per , stop cardizem drip as patient is on PO cardizem as well. Please notify MD if HR sustains over 110.
[2019-01-07] MEDS: metoprolol tartrate 50mg tablet PO SCH ×2 (08:29→20:00)
[2019-01-07] MEDS: lactobacillus rhamnosus 10,000 MMU CELLS/CAPSULE PO SCH ×2 (08:30→20:00)
[2019-01-07] MEDS: HYDROchlorothiazide 12.5mg capsule PO SCH (08:30)
[2019-01-07] MEDS: diltiazem 30mg tablet PO SCH ×2 (08:30→16:00)
[2019-01-07] MEDS: linezolid 600mg tablet PO SCH ×2 (08:30→20:00)
[2019-01-07] MEDS: losartan 50mg tablet PO SCH (08:30)
[2019-01-07] MEDS: heparin, porcine 5000 units/ml vial SQ SCH (08:31)
[2019-01-07] MEDS: furosemide 20 MG/2 ML vial IV SCH ×2 (08:31→20:00)
[2019-01-07] MEDS: insulin Lispro (HumaLOG) vial - multi-dose SQ SCH (08:39)
[2019-01-07] MEDS: magnesium hydroxide 30ml (MOM) UD suspension PO PRN (09:38)
--- NOTE | 2019-01-07 10:05 | NUR ---
Pt off unit for 2V CXR via wheelchair with O2 via NC Addendum: 01/07/19 at 1015 by Dayna Zarate RN 1013 Pt back to unit in stable condition. Addendum: 01/07/19 at 1924 by Dayna Zarate RN 1030 Bedding changed by staff aides, pt refusing hospital gown, wearing personal clothing.
[2019-01-07] MEDS ORDERED: levoFLOXACIN 750MG TABLET PO SCH (11:00)
--- NOTE | 2019-01-07 11:24 | NUR ---
PAGER ID: [phone] MESSAGE: [id number] Kropp. Moon [phone] Chest tube removed, won't stop bleeding, PHARMACY TECHNICIAN PER DIEM requesting you at bedside. Thanks
[2019-01-07 11:52] LABS: BASOPHILS % (AUTO) 0.2 % (0-1); EOSINOPHILS # (AUTO) 0.4 X10'3 (0-0.9); EOSINOPHILS % (AUTO) 2.3 % (0-6); HEMATOCRIT 36.8 % (42.0-52.0); HEMOGLOBIN 12.3 g/dl (14.0-17.9); LYMPHOCYTES # (AUTO) 0.8 X10'3 (1.1-4.8); LYMPHOCYTES % (AUTO) 4.8 % (21-51); MEAN CORPUSCULAR HEMOGLOBIN 29.3 PG (27.0-31.0); MEAN CORPUSCULAR HGB CONC 33.5 g/dL (33.0-36.5); MEAN CORPUSCULAR VOLUME 87.5 FL (78-98); MEAN PLATELET VOLUME 8.5 FL (7.4-10.4); MONOCYTES # (AUTO) 1.3 X10'3 (0-0.9); MONOCYTES % (AUTO) 7.7 % (2-12); NEUTROPHILS # (AUTO) 14.5 X10'3 (1.8-7.7); PLATELET COUNT 397 X10'3 (140-440); RED BLOOD COUNT 4.21 X10'6 (4.70-6.10); RED CELL DISTRIBUTION WIDTH 16.5 % (11.5-14.5)
--- NOTE | 2019-01-07 13:03 | NUR ---
PAGER ID: [phone] MESSAGE: [id number] Andre Villarreal Pt c/o 04/22 pain left upper shoulder after chest tube removal, unchanged by pain medication. Increasing SOB, satting 95% on RA, HR 80's. Please advise. Sarai [phone] Addendum: 01/07/19 at 1330 by Dayna Zarate RN 1307 at patient bedside, orders received for stat CXR and 2MG Iv dilaudid now, may repeat Q15Min up to 3 doses if needed.
[2019-01-07] MEDS ORDERED: HYDROmorphone 1 mg/ml syringe IV ONE ×2 (13:10→13:33)
--- NOTE | 2019-01-07 13:29 | NUR ---
PAGER ID: [phone] MESSAGE: [phone] Andre Villarreal CXR resulted.
[2019-01-07 13:52] LABS: ANISOCYTOSIS 1+; PLATELET ESTIMATE NORMAL
[2019-01-07 13:54] LABS: MICROCYTOSIS FEW; SPHEROCYTES 1+
--- NOTE | 2019-01-07 14:00 | NUR ---
PAGER ID: [phone] MESSAGE: [phone] Williams Villarreal. HR and pulse sustaining 160s, please advise. Sarai [phone]
[2019-01-07] MEDS ORDERED: albumin (Human) 5% 250ml 250 ML IV ONE (16:00)
--- NOTE | 2019-01-07 16:00 | NUR ---
Received verbal order to administer IV albumin now, 250mL 5% available. Per MD, monitor BP Q2-3min, administer further albumin if BP continues to drop. STAT chest/abdm/pelvis CT with contrast. Albumin infusing. Pt down to CT, SBP trending high 90's to 110's. Pt taken to OR, will be transferred to ICU s/p surgery. Care relinquished.
[2019-01-07] MEDS ORDERED: albumin (Human) 5% 250ml 500 ML IV ONE (16:06)
[2019-01-07] MEDS ORDERED: iohexol 300mg/ml 100ml inj. ONE (16:15)
[2019-01-07] MEDS ORDERED: vasoPRESSIN 20 units/ml inj. ONE (16:30)
[2019-01-07] MEDS ORDERED: aminocaproic acid 250 MG/1 ML inj. ONE (16:30)
[2019-01-07] MEDS ORDERED: sevoflurane 250ml liquid IH ONE (16:30)
[2019-01-07] MEDS ORDERED: rocuronium 10mg/ml inj IV ONE ×2 (16:30→17:46)
[2019-01-07] MEDS ORDERED: midazolam 2 mg/2 ml injection ONE (16:40)
[2019-01-07] MEDS ORDERED: fentaNYL /PF 50mcg/ml 5ml ampule ONE (16:40)
[2019-01-07] MEDS ORDERED: ceFAZolin inj. 2,000 MG in dextrose 5%-water 100 ML IV ONE (16:45)
[2019-01-07] MEDS ORDERED: NORepinephrine 1 mg/ml inj IV ONE (17:14)
[2019-01-07] MEDS ORDERED: sodium bicarbonate (8.4%) inj. 1 MEQ/ML ML ONE ×2 (17:46→18:58)
[2019-01-07] MEDS ORDERED: succinylcholine 20mg/ml inj IV ONE (17:46)
[2019-01-07] MEDS ORDERED: etomidate 2mg/ml inj. ONE (17:46)
[2019-01-07] MEDS ORDERED: phenylephrine 10mg/ml inj. ONE (17:47)
[2019-01-07 17:50] LABS: ABG BASE EXCESS 1.4 mmol/L (-2.0-3.0); ABG HCO3 28.1 mmol/L (22.0-26.0); ABG OXYGEN SATURATION 99.1 % (95-98); ABG PCO2 (T) 56.3 mmHg (35.0-48.0); ABG PH (T) 7.319 (7.350-7.450); ABG PO2 (T) 348.7 mmHg (83-108); FCOHb 0.8 % (0.5-1.5); FMetHb 0.3 % (0.3-1.12); PATIENT TEMPERATURE 37.5
[2019-01-07 18:08] LABS: BASOPHILS # (AUTO) 0.1 X10'3 (0-0.2); BASOPHILS % (AUTO) 0.3 % (0-1); EOSINOPHILS # (AUTO) 0.1 X10'3 (0-0.9); EOSINOPHILS % (AUTO) 0.3 % (0-6); HEMATOCRIT 29.3 % (42.0-52.0); HEMOGLOBIN 9.8 g/dl (14.0-17.9); LYMPHOCYTES # (AUTO) 0.8 X10'3 (1.1-4.8); MEAN CORPUSCULAR HEMOGLOBIN 29.6 PG (27.0-31.0); MEAN CORPUSCULAR HGB CONC 33.5 g/dL (33.0-36.5); MEAN CORPUSCULAR VOLUME 88.5 FL (78-98); MEAN PLATELET VOLUME 8.6 FL (7.4-10.4); MONOCYTES % (AUTO) 7.9 % (2-12); NEUTROPHILS # (AUTO) 22.5 X10'3 (1.8-7.7); NEUTROPHILS % (AUTO) 88.5 % (42-75); PLATELET COUNT 412 X10'3 (140-440); RED BLOOD COUNT 3.32 X10'6 (4.70-6.10); RED CELL DISTRIBUTION WIDTH 16.3 % (11.5-14.5)
[2019-01-07 18:10] LABS: WHITE BLOOD COUNT 25.4 X10'3 (4.5-11.0)
[2019-01-07 18:20] LABS: PARTIAL THROMBOPLASTIN TIME 24 SECONDS (22-32)
[2019-01-07] MEDS ORDERED: dextrose 5%-water 1,000 ML IV ONE (19:03)
[2019-01-07] MEDS ORDERED: gentamicin 40 MG/1 ML inj ONE (19:09)
[2019-01-07] MEDS ORDERED: clindamycin phosphate 150mg/ml inj. ONE (19:09)
[2019-01-07] MEDS ORDERED: insulin Lispro (HumaLOG) vial - multi-dose SQ PRN (19:10)
[2019-01-07] MEDS ORDERED: dextrose 50%-water 50ml dispensing syringe IV PRN (19:10)
[2019-01-07 19:16] LABS: ANISOCYTOSIS 1+; PLATELET ESTIMATE NORMAL; TOTAL CELLS COUNTED 100
[2019-01-07 19:17] LABS: SPHEROCYTES FEW
[2019-01-07 19:36] LABS: ISTAT CREATININE 1.3 mg/dL (0.8-1.3); ISTAT HGB 8.8 g/dl (14.0-18.0); ISTAT IONIZED CALCIUM 1.15 mmol/L (1.03-1.32); POC BUN/CREATININE RATIO 16.2 (5.4-32.0)
[2019-01-07 19:36] LABS: ISTAT HGB 10.5 g/dl (14.0-18.0); ISTAT IONIZED CALCIUM 1.21 mmol/L (1.03-1.32); ISTAT K 5.9 mmol/L (3.5-5.1)
[2019-01-07 19:36] LABS: ABG BASE EXCESS -0.2 mmol/L (-2.0-3.0); ABG HCO3 24.3 mmol/L (22.0-26.0); ABG PCO2 (T) 39.8 mmHg (35.0-48.0); ABG PH (T) 7.406 (7.350-7.450); ABG PO2 (T) 139.1 mmHg (83-108); FCOHb 0.8 % (0.5-1.5); FMetHb 0.3 % (0.3-1.12); FO2Hb 96.9 % (94-100); PATIENT TEMPERATURE 37.4; TOTAL HEMOGLOBIN 9.7 G/dl (14.0-18.0)
[2019-01-07] MEDS ORDERED: midazolam 100mg in NS 100ml 100 ML IV PRN (20:55)
[2019-01-07] MEDS ORDERED: fentaNYL/PF 50MCG/1 ML 2ML syringe IV PRN (20:55)
[2019-01-07] MEDS ORDERED: propofol 1000mg/100ml bottle 100 ML IV ONE (21:00)
--- NOTE | 2019-01-07 21:00 | NUR ---
pt arrived from OR at this time. vasopressin and levo in use. HR 130-140's. Brusett present. gave order for chest tubes to water seal. wishes to wean levo off before titrating vasopressin.
[2019-01-07] MEDS ORDERED: CADD PCA waste documentation MC PRN (21:05)
[2019-01-07 21:25] LABS: ABG BASE EXCESS -0.6 mmol/L (-2.0-3.0); ABG HCO3 26.8 mmol/L (22.0-26.0); ABG OXYGEN SATURATION 94.1 % (95-98); ABG PCO2 (T) 57.9 mmHg (35.0-48.0); ABG PH (T) 7.283 (7.350-7.450); ABG PO2 (T) 87.8 mmHg (83-108); FCOHb 0.8 % (0.5-1.5); FMetHb 0.3 % (0.3-1.12); FO2Hb 93.1 % (94-100); PEEP 10 cm H2O; RESPIRATORY RATE 16 b/min; RESPIRATORY RATE (OBSERVED) 16 b/min; TIDAL VOLUME 600 mL; TOTAL HEMOGLOBIN 10.3 G/dl (14.0-18.0)
[2019-01-07] MEDS ORDERED: albuterol 2.5 MG/3 ML nebule NEB PRN (21:25)
[2019-01-07] MEDS ORDERED: linezolid 600mg/300ml PREMIX 300 ML IV SCH (21:30)
[2019-01-07 21:32] LABS: BASOPHILS # (AUTO) 0.1 X10'3 (0-0.2); BASOPHILS % (AUTO) 0.2 % (0-1); EOSINOPHILS # (AUTO) 0.1 X10'3 (0-0.9); EOSINOPHILS % (AUTO) 0.2 % (0-6); HEMATOCRIT 28.2 % (42.0-52.0); HEMOGLOBIN 9.3 g/dl (14.0-17.9); LYMPHOCYTES # (AUTO) 0.9 X10'3 (1.1-4.8); LYMPHOCYTES % (AUTO) 3.5 % (21-51); MEAN CORPUSCULAR VOLUME 87.8 FL (78-98); MEAN PLATELET VOLUME 8.6 FL (7.4-10.4); MONOCYTES % (AUTO) 7.5 % (2-12); NEUTROPHILS # (AUTO) 23.4 X10'3 (1.8-7.7); NEUTROPHILS % (AUTO) 88.6 % (42-75); PLATELET COUNT 378 X10'3 (140-440); RED BLOOD COUNT 3.21 X10'6 (4.70-6.10); RED CELL DISTRIBUTION WIDTH 16.8 % (11.5-14.5)
[2019-01-07] MEDS: amiodarone/D5 360MG/200ML BAG 200 ML IV SCH ×2 (21:33→23:39)
[2019-01-07] MEDS: midazolam 100mg in NS 100ml 100 ML IV PRN ×2 (21:33→22:23)
[2019-01-07 21:35] LABS: WHITE BLOOD COUNT 26.5 X10'3 (4.5-11.0)
[2019-01-07 21:37] LABS: PARTIAL THROMBOPLASTIN TIME 26 SECONDS (22-32)
[2019-01-07 21:41] LABS: ALANINE AMINOTRANSFERASE 622 U/L (12-78); ALBUMIN 1.9 G/DL (3.4-5.0); ALBUMIN/GLOBULIN RATIO 0.6 (1.1-1.5); ALKALINE PHOSPHATASE 60 IU/L (46-116); ANION GAP 0 (8-16); ASPARTATE AMINO TRANSFERASE 468 U/L (10-37); BILIRUBIN,TOTAL 1.2 MG/DL (0.1-1.0); BLOOD UREA NITROGEN 25 MG/DL (7-18); BUN/CREATININE RATIO 16.1 (5.4-32.0); CALCIUM 8.3 MG/DL (8.5-10.1); CHLORIDE 104 MMOL/L (99-107); CREATININE 1.55 MG/DL (0.60-1.10); GLUCOSE 171 MG/DL (70-104); SODIUM 135 MMOL/L (135-145); TOTAL CARBON DIOXIDE 30.6 MMOL/L (24-32); TOTAL PROTEIN 5.2 G/DL (6.4-8.2); eGFR 49 ML/MIN
[2019-01-07 21:46] LABS: POTASSIUM 6.5 MMOL/L (3.5-5.1)
[2019-01-07] MEDS ORDERED: albuterol 2.5 MG/3 ML nebule CONTNEB STA (21:47)
[2019-01-07] MEDS ORDERED: dextrose 50%-water 50ml dispensing syringe IV ONE (21:50)
[2019-01-07] MEDS ORDERED: insulin regular, human 10 units/0.1 ml syringe IV ONE (21:50)
[2019-01-07 21:52] LABS: ANISOCYTOSIS 1+; PLATELET ESTIMATE NORMAL; TOTAL CELLS COUNTED 100
[2019-01-07 21:53] LABS: BURR CELLS 1+; LARGE PLATELETS FEW
[2019-01-07] MEDS ORDERED: PROPOFOL 1000 MG/100 ML IV ONE ×4 (22:00→22:15)
[2019-01-07] MEDS ORDERED: albumin (human) 25% 100 ML IV solution IV ONE (22:20)
[2019-01-07] MEDS: FENTANYL-0.9 % NACL/PF 100 ML IV PRN (22:22)
[2019-01-07] MEDS: vasopressin inj. 20 UNIT in normal saline 100ml IV soln 39 ML IV SCH (22:24)
[2019-01-07] MEDS: dextrose 5%-1/2 normal saline 1,000 ML IV SCH (22:25)
[2019-01-07] MEDS: insulin regular, human 100 UNIT in normal saline 100ml IV soln 99 ML IV SCH ×2 (22:28)
[2019-01-07] MEDS ORDERED: HYDROmorphone/NS 1 mg/ml CADD 50 ML IV SCH (23:00)
[2019-01-07] MEDS: ipratropium/albuterol 3ml nebule NEB SCH (23:00)
[2019-01-07] MEDS: NORepinephrine 8mg/ 250ml NS 250 ML IV SCH (23:12)
[2019-01-08] VITALS (24 sets, daily range): BP systolic 87–130; BP diastolic 43–65
--- NOTE | 2019-01-08 | NUR ---
at 0000 the pt converted from afib in 140's to SR in 70's and 80's. tolerating well. amiodarone continues. continue to monitor.
--- NOTE | 2019-01-08 00:30 | NUR ---
Shannon rounded at this time. i let him know that pt converted to SR. Shannon gave order for flotrac monitoring. he requested that if CI less than 2.5 then order a mixed venous and notify him of the results. continue to monitor.
[2019-01-08 00:50] LABS: OXYGEN SATURATION (MIXED VEN) 69.3 % (60-80)
[2019-01-08] MEDS: piperacillin/tazo 4.5gm/100ml 100 ML IV SCH ×3 (01:01→16:54)
[2019-01-08 01:15] LABS: ALANINE AMINOTRANSFERASE 817 U/L (12-78); ALBUMIN 2.3 G/DL (3.4-5.0); ALBUMIN/GLOBULIN RATIO 0.8 (1.1-1.5); ALKALINE PHOSPHATASE 45 IU/L (46-116); ANION GAP 4 (8-16); ASPARTATE AMINO TRANSFERASE 663 U/L (10-37); BILIRUBIN,TOTAL 0.8 MG/DL (0.1-1.0); BLOOD UREA NITROGEN 28 MG/DL (7-18); BUN/CREATININE RATIO 16.8 (5.4-32.0); CALCIUM 7.6 MG/DL (8.5-10.1); CHLORIDE 102 MMOL/L (99-107); CREATININE 1.67 MG/DL (0.60-1.10); GLUCOSE 189 MG/DL (70-104); MAGNESIUM 1.5 MG/DL (1.5-2.4); PHOSPHORUS 5.1 MG/DL (2.3-4.5); SODIUM 134 MMOL/L (135-145); TOTAL CARBON DIOXIDE 28.4 MMOL/L (24-32); TOTAL PROTEIN 5.2 G/DL (6.4-8.2); eGFR 45 ML/MIN
[2019-01-08 01:22] LABS: POTASSIUM 5.8 MMOL/L (3.5-5.1)
--- NOTE | 2019-01-08 01:33 | NUR ---
i called Dr Ortega at this time. i let him know flotrac readings, as well as mixed venous. he gave orders to start dobutamine at low dose like 3-5, and to use neosynephrine as needed for BP.
[2019-01-08] MEDS ORDERED: DOBUTamine-DoBUTrex 500mg/D5W 250 ML IV ONE (02:15)
[2019-01-08] MEDS ORDERED: DOBUTamine-DoBUTrex 500mg/D5W 250 ML IV PRN (02:20)
[2019-01-08] MEDS: ipratropium/albuterol 3ml nebule NEB SCH ×5 (02:46→23:36)
[2019-01-08 03:00] LABS: ABG BASE EXCESS 1.9 mmol/L (-2.0-3.0); ABG HCO3 27.8 mmol/L (22.0-26.0); ABG OXYGEN SATURATION 98.8 % (95-98); ABG PCO2 (T) 50.7 mmHg (35.0-48.0); ABG PH (T) 7.358 (7.350-7.450); ABG PO2 (T) 204.9 mmHg (83-108); FCOHb 0.7 % (0.5-1.5); FMetHb 0.3 % (0.3-1.12); FO2Hb 97.8 % (94-100); MINUTE VOLUME 12 L/min; PATIENT TEMPERATURE 37.1; PEEP 5 cm H2O; RESPIRATORY RATE 18 b/min; RESPIRATORY RATE (OBSERVED) 19 b/min; TIDAL VOLUME 600 mL; TOTAL HEMOGLOBIN 8.7 G/dl (14.0-18.0)
[2019-01-08 03:48] LABS: BASOPHILS # (AUTO) 0.1 X10'3 (0-0.2); BASOPHILS % (AUTO) 0.4 % (0-1); EOSINOPHILS % (AUTO) 0.2 % (0-6); HEMATOCRIT 23.1 % (42.0-52.0); HEMOGLOBIN 7.7 g/dl (14.0-17.9); LYMPHOCYTES # (AUTO) 0.7 X10'3 (1.1-4.8); LYMPHOCYTES % (AUTO) 3.7 % (21-51); MEAN CORPUSCULAR HEMOGLOBIN 29.1 PG (27.0-31.0); MEAN CORPUSCULAR HGB CONC 33.4 g/dL (33.0-36.5); MEAN PLATELET VOLUME 8.5 FL (7.4-10.4); MONOCYTES # (AUTO) 1.2 X10'3 (0-0.9); MONOCYTES % (AUTO) 6.7 % (2-12); NEUTROPHILS # (AUTO) 16.2 X10'3 (1.8-7.7); PLATELET COUNT 274 X10'3 (140-440); RED BLOOD COUNT 2.65 X10'6 (4.70-6.10); RED CELL DISTRIBUTION WIDTH 16.7 % (11.5-14.5); WHITE BLOOD COUNT 18.2 X10'3 (4.5-11.0)
[2019-01-08 03:55] LABS: SODIUM,URINE RANDOM < 15 MEQ/L
[2019-01-08 04:32] LABS: ALANINE AMINOTRANSFERASE 782 U/L (12-78); ALBUMIN 2.1 G/DL (3.4-5.0); ALBUMIN/GLOBULIN RATIO 0.8 (1.1-1.5); ALKALINE PHOSPHATASE 48 IU/L (46-116); ANION GAP 3 (8-16); ASPARTATE AMINO TRANSFERASE 615 U/L (10-37); BILIRUBIN,TOTAL 0.7 MG/DL (0.1-1.0); BLOOD UREA NITROGEN 29 MG/DL (7-18); BUN/CREATININE RATIO 15.6 (5.4-32.0); CALCIUM 7.5 MG/DL (8.5-10.1); CHLORIDE 101 MMOL/L (99-107); CREATININE 1.86 MG/DL (0.60-1.10); GLUCOSE 164 MG/DL (70-104); POTASSIUM 5.7 MMOL/L (3.5-5.1); SODIUM 134 MMOL/L (135-145); TOTAL CARBON DIOXIDE 30.3 MMOL/L (24-32); TOTAL PROTEIN 4.9 G/DL (6.4-8.2); eGFR 40 ML/MIN
[2019-01-08 04:43] LABS: PARTIAL THROMBOPLASTIN TIME 24 SECONDS (22-32)
[2019-01-08] MEDS: phenylephrine inj 20 MG in normal saline 250ml IV soln 250 ML IV PRN (04:47)
[2019-01-08] MEDS: FENTANYL-0.9 % NACL/PF 100 ML IV PRN ×2 (05:48→16:54)
[2019-01-08] MEDS: amiodarone/D5 360MG/200ML BAG 200 ML IV SCH ×3 (05:48→19:34)
--- NOTE | 2019-01-08 06:30 | NUR ---
Problems reprioritized. Patient report given, questions answered & plan of care reviewed with Kong BURROUGHS.
[2019-01-08] MEDS: metoprolol tartrate 50mg tablet PO SCH ×2 (08:00→19:36)
[2019-01-08] MEDS: levoFLOXACIN-Levaquin 750MG/D5 150 ML IV SCH (08:13)
[2019-01-08] MEDS: dextrose 5%-1/2 normal saline 1,000 ML IV SCH ×2 (08:15→17:20)
[2019-01-08] MEDS: lactobacillus rhamnosus 10,000 MMU CELLS/CAPSULE PO SCH ×2 (08:34→20:34)
[2019-01-08] MEDS: ESOMEPRAZOLE 40 MG VIAL IV SCH (08:35)
[2019-01-08 09:31] LABS: ANION GAP 2 (8-16); BLOOD UREA NITROGEN 33 MG/DL (7-18); BUN/CREATININE RATIO 15.6 (5.4-32.0); CALCIUM 7.5 MG/DL (8.5-10.1); CHLORIDE 103 MMOL/L (99-107); CREATININE 2.12 MG/DL (0.60-1.10); GLUCOSE 130 MG/DL (70-104); PHOSPHORUS 4.8 MG/DL (2.3-4.5); POTASSIUM 5.6 MMOL/L (3.5-5.1); SODIUM 134 MMOL/L (135-145); TOTAL CARBON DIOXIDE 29.4 MMOL/L (24-32); eGFR 34 ML/MIN
[2019-01-08] MEDS: furosemide 20 MG/2 ML vial IV SCH (09:56)
[2019-01-08 11:45] LABS: ABG BASE EXCESS -0.4 mmol/L (-2.0-3.0); ABG HCO3 24.2 mmol/L (22.0-26.0); ABG OXYGEN SATURATION 92.6 % (95-98); ABG PCO2 (T) 38.8 mmHg (35.0-48.0); ABG PH (T) 7.412 (7.350-7.450); ABG PO2 (T) 70.4 mmHg (83-108); FCOHb 0.5 % (0.5-1.5); FMetHb 0.3 % (0.3-1.12); FO2Hb 91.9 % (94-100); MINUTE VOLUME 17 L/min; PEEP 5 cm H2O; RESPIRATORY RATE (OBSERVED) 47 b/min; TIDAL VOLUME 375 mL; TOTAL HEMOGLOBIN 8.6 G/dl (14.0-18.0)
--- NOTE | 2019-01-08 12:20 | NUR ---
Patient is intubated after rapid response following removal of pigtail tube, is now s/p left thoracotomy, decortication, evacuation of hemothorax on 01/07. Has chest tube. No plans to tube feeding at this time. Will continue to follow. Recommendations: 1) when extubated continue regular diet 2) when extubated and diet is advanced, send Double protein TID 3) when extubated and diet is advanced, Grind all food d/t difficulty chewing per pt request 4) Wt per rx Addendum: 01/08/19 at [address] Amended: Links added. Addendum: 01/08/19 at [address] Patient is intubated after rapid response following removal of pigtail tube, is now s/p left thoracotomy, decortication, evacuation of hemothorax on 01/07. Has chest tube. No plans to tube feeding at this time. Will continue to follow. Recommendations: 1) when extubated continue regular diet as medically indicated 2) when extubated and diet is advanced, send Double protein TID 3) when extubated and diet is advanced, Grind all food d/t difficulty chewing per pt request 4) Wt per rx
[2019-01-08 12:38] LABS: HEMATOCRIT 23.6 % (42.0-52.0); HEMOGLOBIN 7.9 g/dl (14.0-17.9); MEAN CORPUSCULAR HEMOGLOBIN 29.3 PG (27.0-31.0); MEAN CORPUSCULAR HGB CONC 33.5 g/dL (33.0-36.5); MEAN CORPUSCULAR VOLUME 87.4 FL (78-98); PLATELET COUNT 288 X10'3 (140-440); RED CELL DISTRIBUTION WIDTH 17.1 % (11.5-14.5); WHITE BLOOD COUNT 21.2 X10'3 (4.5-11.0)
[2019-01-08 12:49] LABS: TROPONIN I 0.06 NG/ML (0.0-0.05)
[2019-01-08 15:24] LABS: ALBUMIN 1.9 G/DL (3.4-5.0); ANION GAP 3 (8-16); BLOOD UREA NITROGEN 36 MG/DL (7-18); BUN/CREATININE RATIO 15.2 (5.4-32.0); CALCIUM 7.6 MG/DL (8.5-10.1); CHLORIDE 101 MMOL/L (99-107); CREATININE 2.37 MG/DL (0.60-1.10); GLUCOSE 158 MG/DL (70-104); PHOSPHORUS 3.7 MG/DL (2.3-4.5); POTASSIUM 5.3 MMOL/L (3.5-5.1); SODIUM 133 MMOL/L (135-145); TOTAL CARBON DIOXIDE 29.1 MMOL/L (24-32); eGFR 30 ML/MIN
[2019-01-08] MEDS: insulin regular, human 100 UNIT in normal saline 100ml IV soln 99 ML IV SCH ×2 (16:58)
[2019-01-08] MEDS ORDERED: vancomycin/NS 1 GM ADD-VANTAGE 250 ML IV ONE (17:10)
[2019-01-08 17:38] LABS: HEMOGLOBIN 7.5 g/dl (14.0-17.9); MEAN CORPUSCULAR HEMOGLOBIN 29.3 PG (27.0-31.0); MEAN CORPUSCULAR HGB CONC 33.9 g/dL (33.0-36.5); MEAN CORPUSCULAR VOLUME 86.5 FL (78-98); MEAN PLATELET VOLUME 8.3 FL (7.4-10.4); PLATELET COUNT 268 X10'3 (140-440); RED BLOOD COUNT 2.55 X10'6 (4.70-6.10); RED CELL DISTRIBUTION WIDTH 16.8 % (11.5-14.5); WHITE BLOOD COUNT 18.9 X10'3 (4.5-11.0)
[2019-01-08] MEDS: vasopressin inj. 20 UNIT in normal saline 100ml IV soln 39 ML IV SCH (18:00)
--- NOTE | 2019-01-08 18:36 | NUR ---
Patient in room CICU 2009. I have received report from Kong BURROUGHS and had the opportunity to ask questions and assume patient care.
--- NOTE | 2019-01-08 18:40 | NUR ---
Patient's CO increasing to 17 and CI up to 6.5 at around 1630 once Vasopressin turned off; SVR around 300. Vasopressin subsequently turned back on to help improve CO/CI. Patient becoming more agitated; o2 saturation down to 83% and FiO2 increased to 60% to improve o2 saturation to 92%; versed given to help with agitation. Also, increase in bloody oral output. Dr. Key at bedside during the episode to order procalcitonin, Hemogram, blood cultures, x-ray and vancomycin. Once Vasopressin turned back on, patient's CO/CI improving as well as o2 saturation; wean Fi02 as tolerated. Dr. Ortega at bedside at 1840 to perform bronchoscopy and aware of the above situation. Per Dr. Ortega, okay to have elevated CO/CI and to wean Vasopressin down as blood pressure tolerates. Also, aware of critically low Hct; no orders to transfuse at this time. Patient report given to Arnaud BURROUGHS with all questions answered.
--- NOTE | 2019-01-08 19:26 | NUR ---
Dr Ortega was present for Broch procedure from around 1845 to 1900. Pt was bolused with versed and fentanyl drips for purpose of procedure. In total he required 20mg of versed and 15mg of fentanyl. tolerated prodecure well. following procedure Shannon gave several orders. he requested that insulin drip and D5 infusion be turned down by half. D5 will be turned from 100ml/hr to 50ml/hr. insulin was at 7.4/h, will be turned down to 3.7. Shannon also gave orders for checking Potassium q6 hrs, and also for lasix to be changed from BID to q8h. continue to monitor.
[2019-01-08] MEDS ORDERED: furosemide 20 MG/2 ML vial IV SCH (20:00)
[2019-01-08] MEDS ORDERED: furosemide 20 MG/2 ML vial IV ONE (20:30)
[2019-01-08] MEDS: midazolam 100mg in NS 100ml 100 ML IV PRN (22:37)
[2019-01-08] MEDS: acetylcysteine 200 MG/ml 4ml vial INH SCH (23:37)
[2019-01-09] VITALS (24 sets, daily range): BP systolic 93–128; BP diastolic 41–58
[2019-01-09] MEDS: piperacillin/tazo 4.5gm/100ml 100 ML IV SCH ×3 (01:25→16:06)
[2019-01-09] MEDS: mineral oil/petrolatum ophthal oint EACHEYE SCH ×4 (02:08→20:03)
[2019-01-09] MEDS: FENTANYL-0.9 % NACL/PF 100 ML IV PRN ×3 (02:09→22:20)
[2019-01-09] MEDS: acetylcysteine 200 MG/ml 4ml vial INH SCH ×6 (02:47→23:12)
[2019-01-09] MEDS: ipratropium/albuterol 3ml nebule NEB SCH ×6 (02:47→23:12)
[2019-01-09 02:50] LABS: BASOPHILS # (AUTO) 0.1 X10'3 (0-0.2); BASOPHILS % (AUTO) 0.3 % (0-1); EOSINOPHILS # (AUTO) 0.1 X10'3 (0-0.9); EOSINOPHILS % (AUTO) 0.3 % (0-6); HEMATOCRIT 22.2 % (42.0-52.0); HEMOGLOBIN 7.4 g/dl (14.0-17.9); LYMPHOCYTES # (AUTO) 0.6 X10'3 (1.1-4.8); LYMPHOCYTES % (AUTO) 2.7 % (21-51); MEAN CORPUSCULAR HEMOGLOBIN 29.2 PG (27.0-31.0); MEAN CORPUSCULAR HGB CONC 33.2 g/dL (33.0-36.5); MEAN CORPUSCULAR VOLUME 87.8 FL (78-98); MONOCYTES # (AUTO) 1.6 X10'3 (0-0.9); MONOCYTES % (AUTO) 7.2 % (2-12); NEUTROPHILS # (AUTO) 20.4 X10'3 (1.8-7.7); NEUTROPHILS % (AUTO) 89.5 % (42-75); PLATELET COUNT 293 X10'3 (140-440); RED BLOOD COUNT 2.53 X10'6 (4.70-6.10); RED CELL DISTRIBUTION WIDTH 16.8 % (11.5-14.5); WHITE BLOOD COUNT 22.8 X10'3 (4.5-11.0)
[2019-01-09 02:55] LABS: ALANINE AMINOTRANSFERASE 534 U/L (12-78); ALBUMIN 1.8 G/DL (3.4-5.0); ALBUMIN/GLOBULIN RATIO 0.6 (1.1-1.5); ALKALINE PHOSPHATASE 44 IU/L (46-116); ANION GAP 7 (8-16); ASPARTATE AMINO TRANSFERASE 288 U/L (10-37); BILIRUBIN,TOTAL 0.7 MG/DL (0.1-1.0); BLOOD UREA NITROGEN 41 MG/DL (7-18); BUN/CREATININE RATIO 15.3 (5.4-32.0); CALCIUM 7.3 MG/DL (8.5-10.1); CHLORIDE 99 MMOL/L (99-107); CREATININE 2.68 MG/DL (0.60-1.10); GLUCOSE 152 MG/DL (70-104); MAGNESIUM 1.8 MG/DL (1.5-2.4); POTASSIUM 5.5 MMOL/L (3.5-5.1); SODIUM 133 MMOL/L (135-145); TOTAL CARBON DIOXIDE 27.1 MMOL/L (24-32); eGFR 26 ML/MIN
[2019-01-09 02:57] LABS: PARTIAL THROMBOPLASTIN TIME 30 SECONDS (22-32)
[2019-01-09] MEDS: phenylephrine inj 20 MG in normal saline 250ml IV soln 250 ML IV PRN (03:15)
[2019-01-09] MEDS: vasopressin inj. 20 UNIT in normal saline 100ml IV soln 39 ML IV SCH ×3 (03:16→22:19)
[2019-01-09 03:45] LABS: ABG HCO3 26.3 mmol/L (22.0-26.0); ABG OXYGEN SATURATION 95.9 % (95-98); ABG PCO2 (T) 45.1 mmHg (35.0-48.0); ABG PH (T) 7.384 (7.350-7.450); ABG PO2 (T) 91.3 mmHg (83-108); ALLEN'S TEST N A; FCOHb 0.6 % (0.5-1.5); FMetHb 0.3 % (0.3-1.12); PATIENT TEMPERATURE 37.1; PEEP 5 cm H2O; RESPIRATORY RATE 20 b/min; TIDAL VOLUME 600 mL; TOTAL HEMOGLOBIN 8.2 G/dl (14.0-18.0)
[2019-01-09] MEDS: amiodarone/D5 360MG/200ML BAG 200 ML IV SCH ×4 (04:01→21:37)
[2019-01-09] MEDS: furosemide 20 MG/2 ML vial IV SCH ×3 (04:01→20:03)
[2019-01-09] MEDS: midazolam 100mg in NS 100ml 100 ML IV PRN (05:36)
--- NOTE | 2019-01-09 06:20 | NUR ---
Problems reprioritized. Patient report given, questions answered & plan of care reviewed with Kong BURROUGHS.
[2019-01-09] MEDS: metoprolol tartrate 50mg tablet PO SCH ×2 (08:00→20:00)
[2019-01-09] MEDS: levoFLOXACIN-Levaquin 750MG/D5 150 ML IV SCH (08:09)
[2019-01-09] MEDS: ESOMEPRAZOLE 40 MG VIAL IV SCH (08:10)
[2019-01-09] MEDS: lactobacillus rhamnosus 10,000 MMU CELLS/CAPSULE PO SCH ×2 (08:11→20:03)
--- NOTE | 2019-01-09 09:30 | NUR ---
Dr. Key at bedside; patient with no bowel movement and on opioids, orders to start Relistor. Also, MD aware of increasing creatinine fx. Patient's potassium down to 5.1, per Dr. Key, he would like to continue the D5-1/2 NS at 50 and Insulin gtt. H/H decreased but stable, per Dr. Key, we will wait until tomorrow AM to recheck labs. Will attempt patient on spontaneous to start attempting weaning parameters, will notify RT.
[2019-01-09] MEDS: methylnaltrexone br 12mg/0.6ml inj***SubQ only SQ SCH (09:48)
--- NOTE | 2019-01-09 10:45 | NUR ---
ventilator alarming for expiratory flow sensor. bs equal bilaterally pt O2 saturation stable 95-98% flow sensor switched out by DENTAL PROSTHETIST author of this note Addendum: 01/09/19 at 1423 by Gunjan Vergara RT no harm to pt
[2019-01-09] MEDS: dextrose 5%-1/2 normal saline 1,000 ML IV SCH (11:49)
[2019-01-09] MEDS ORDERED: insulin regular, human vial - multi-dose SQ PRN (12:41)
[2019-01-09 13:11] LABS: ABG BASE EXCESS -1.1 mmol/L (-2.0-3.0); ABG HCO3 23.6 mmol/L (22.0-26.0); ABG OXYGEN SATURATION 96.6 % (95-98); ABG PCO2 (T) 39.4 mmHg (35.0-48.0); ABG PH (T) 7.396 (7.350-7.450); ABG PO2 (T) 98.3 mmHg (83-108); FCOHb 0.4 % (0.5-1.5); FLOW 35 L/min; FMetHb 0.3 % (0.3-1.12); FO2Hb 95.9 % (94-100); MINUTE VOLUME 12 L/min; PEEP 8 cm H2O; RESPIRATORY RATE 20 b/min; RESPIRATORY RATE (OBSERVED) 20 b/min; TIDAL VOLUME 600 mL; TOTAL HEMOGLOBIN 8.5 G/dl (14.0-18.0)
--- NOTE | 2019-01-09 13:50 | NUR ---
vent continuing to alarm for expiratory flow sensor. also saying no data on flow and volume waveforms. bs kathryn colorado stable 96-98% forensic audit expert again changed out flow sensor Addendum: 01/09/19 at 1422 by Gunjan Vergara RT no harm to pt
--- NOTE | 2019-01-09 14:21 | NUR ---
ventilator alarming for expiratory flow sensor and no data in flow or volume wave forms bs equal bilat O2 saturation 95-98% rt switched out entire vent with pt on vortran. no harm to pt new vent working appropriately
--- NOTE | 2019-01-09 14:38 | NUR ---
TF Consult: OGTF to start today per MD at 20ml/hr. TF recs below for wound healing and intubation needs. LBM 01/06 on relistor since on opioids. Will monitor for TF tolerance. Recommendations: 1) OGTF per MD at 20ml/hr using Vital High Protein 2) IF TF to advance; rec Vital High Protein at 95ml/hr goal; to provide 2280 ml fluid, 2280kcals, 1915ml free water, and 200g protein. Advance 20ml Q8 to goal as tolerated. 3) prealbumin Q /, daily wts 4) additional water flush per sales specialist at this time 5) when extubated and diet is advanced, send Double protein TID; Grind all food d/t difficulty chewing per pt request Addendum: 01/09/19 at [address] Amended: Links added.
--- NOTE | 2019-01-09 15:33 | NUR ---
Positive sputum and pleural fluid cultures; Dr. Ortega aware; pt on antibiotics, started Vanco yesterday. Will continue to monitor for MRSA.
[2019-01-09] MEDS ORDERED: acetaminophen 325mg/10.15ml oral unit dose solution OGT PRN ×2 (15:44)
[2019-01-09] MEDS ORDERED: mag hydrox/Alum hydrox/simeth 30ml oral suspension OGT PRN (15:45)
[2019-01-09] MEDS ORDERED: magnesium hydroxide 30ml (MOM) UD suspension OGT PRN (15:46)
--- NOTE | 2019-01-09 18:22 | NUR ---
Patient in room CICU 2009. I have received report from Kong BURROUGHS and had the opportunity to ask questions and assume patient care. Pt on vent with Fio2 at 50% PEEP of 8, spo2 at 98%, Vasopressin gtt, versed gtt, fentanyl gtt, will titrate per protocol, see IV flowsheet for more information, Left chest tubes to water seal, small air leak, no crepitus noted. See interventions for more information. All monitoring alarms audible. Will continue to monitor.
--- NOTE | 2019-01-09 18:40 | NUR ---
6Problems reprioritized. Patient report given, questions answered & plan of care reviewed with Tatianna BURROUGHS.
[2019-01-09] MEDS: insulin regular, human 100 UNIT in normal saline 100ml IV soln 99 ML IV SCH ×2 (19:05)
--- NOTE | 2019-01-09 20:33 | NUR ---
Paged Dr. Ortega. DERRICK BOAT LEVERMAN deferring questions to him at this time.
--- NOTE | 2019-01-09 21:00 | NUR ---
Dr. Grey returned call, informed him of K of 5.4, ordered to continue insulin gtt, informed of decreased urine output received orders for Lasix gtt 5mg/hr.
--- NOTE | 2019-01-09 21:30 | NUR ---
Unable to irrigate parada, bladder scanned for 382, new Parada placed. Old Parada had clot on end.
[2019-01-09 22:04] LABS: ALBUMIN 1.7 G/DL (3.4-5.0); ANION GAP 6 (8-16); BLOOD UREA NITROGEN 50 MG/DL (7-18); BUN/CREATININE RATIO 17.7 (5.4-32.0); CALCIUM 7.5 MG/DL (8.5-10.1); CHLORIDE 99 MMOL/L (99-107); CREATININE 2.83 MG/DL (0.60-1.10); GLUCOSE 142 MG/DL (70-104); POTASSIUM 5.4 MMOL/L (3.5-5.1); SODIUM 131 MMOL/L (135-145); TOTAL CARBON DIOXIDE 25.6 MMOL/L (24-32); eGFR 25 ML/MIN
[2019-01-09] MEDS: furosemide inj 100 MG in normal saline 100ml IV soln 90 ML IV SCH (22:04)
[2019-01-09] MEDS: NORepinephrine 8mg/ 250ml NS 250 ML IV SCH (22:24)
[2019-01-10] VITALS (33 sets, daily range): BP systolic 98–149; BP diastolic 38–69
[2019-01-10] MEDS: piperacillin/tazo 4.5gm/100ml 100 ML IV SCH ×3 (00:22→15:59)
[2019-01-10] MEDS: midazolam 100mg in NS 100ml 100 ML IV PRN ×2 (01:19→21:00)
[2019-01-10] MEDS: mineral oil/petrolatum ophthal oint EACHEYE SCH ×4 (03:16→20:23)
[2019-01-10] MEDS: ipratropium/albuterol 3ml nebule NEB SCH ×6 (03:28→23:13)
[2019-01-10] MEDS: acetylcysteine 200 MG/ml 4ml vial INH SCH ×6 (03:28→23:13)
[2019-01-10 03:46] LABS: ABG BASE EXCESS 1.1 mmol/L (-2.0-3.0); ABG HCO3 25.9 mmol/L (22.0-26.0); ABG OXYGEN SATURATION 97.7 % (95-98); ABG PCO2 (T) 42.6 mmHg (35.0-48.0); ABG PH (T) 7.403 (7.350-7.450); ABG PO2 (T) 124.6 mmHg (83-108); FCOHb 0.7 % (0.5-1.5); FMetHb 0.3 % (0.3-1.12); FO2Hb 96.7 % (94-100); MINUTE VOLUME 14 L/min; PATIENT TEMPERATURE 37.4; PEEP 8 cm H2O; RESPIRATORY RATE 20 b/min; RESPIRATORY RATE (OBSERVED) 20 b/min; TIDAL VOLUME 600 mL; TOTAL HEMOGLOBIN 6.8 G/dl (14.0-18.0)
[2019-01-10 03:56] LABS: ALANINE AMINOTRANSFERASE 434 U/L (12-78); ALBUMIN 1.7 G/DL (3.4-5.0); ALBUMIN/GLOBULIN RATIO 0.5 (1.1-1.5); ALKALINE PHOSPHATASE 47 IU/L (46-116); ANION GAP 6 (8-16); ASPARTATE AMINO TRANSFERASE 167 U/L (10-37); BILIRUBIN,TOTAL 0.5 MG/DL (0.1-1.0); BLOOD UREA NITROGEN 49 MG/DL (7-18); BUN/CREATININE RATIO 17.3 (5.4-32.0); CALCIUM 6.8 MG/DL (8.5-10.1); CHLORIDE 99 MMOL/L (99-107); CREATININE 2.84 MG/DL (0.60-1.10); GLUCOSE 145 MG/DL (70-104); MAGNESIUM 1.9 MG/DL (1.5-2.4); PARTIAL THROMBOPLASTIN TIME 31 SECONDS (22-32); PHOSPHORUS 3.8 MG/DL (2.3-4.5); POTASSIUM 5.5 MMOL/L (3.5-5.1); SODIUM 131 MMOL/L (135-145); TOTAL CARBON DIOXIDE 26.5 MMOL/L (24-32); TOTAL PROTEIN 5.1 G/DL (6.4-8.2); eGFR 24 ML/MIN
[2019-01-10] MEDS: furosemide 20 MG/2 ML vial IV SCH ×3 (04:00→18:46)
[2019-01-10 04:11] LABS: BASOPHILS # (AUTO) 0.1 X10'3 (0-0.2); BASOPHILS % (AUTO) 0.5 % (0-1); EOSINOPHILS # (AUTO) 0.2 X10'3 (0-0.9); EOSINOPHILS % (AUTO) 1.5 % (0-6); LYMPHOCYTES # (AUTO) 0.6 X10'3 (1.1-4.8); LYMPHOCYTES % (AUTO) 3.7 % (21-51); MEAN CORPUSCULAR HEMOGLOBIN 29.8 PG (27.0-31.0); MEAN CORPUSCULAR HGB CONC 34.2 g/dL (33.0-36.5); MEAN CORPUSCULAR VOLUME 87.1 FL (78-98); MEAN PLATELET VOLUME 8.7 FL (7.4-10.4); MONOCYTES # (AUTO) 1.1 X10'3 (0-0.9); NEUTROPHILS # (AUTO) 13.7 X10'3 (1.8-7.7); NEUTROPHILS % (AUTO) 87.3 % (42-75); PLATELET COUNT 217 X10'3 (140-440); RED CELL DISTRIBUTION WIDTH 16.8 % (11.5-14.5); WHITE BLOOD COUNT 15.7 X10'3 (4.5-11.0)
[2019-01-10 04:23] LABS: HEMATOCRIT 19.2 % (42.0-52.0); HEMOGLOBIN 6.5 g/dl (14.0-17.9)
[2019-01-10] MEDS: amiodarone/D5 360MG/200ML BAG 200 ML IV SCH ×3 (04:39→15:59)
[2019-01-10] MEDS ORDERED: sodium polystyrene sulfonate 15gm/60ml oral suspension PO ONE (05:00)
[2019-01-10] MEDS ORDERED: dextrose 50%-water 50ml dispensing syringe IV ONE (05:00)
[2019-01-10] MEDS ORDERED: albuterol 2.5 MG/3 ML nebule CONTNEB ONE (05:00)
[2019-01-10] MEDS ORDERED: calcium gluconate inj. 1 GM in normal saline 100ml IV soln 90 ML IV ONE (05:00)
[2019-01-10] MEDS ORDERED: insulin regular, human 10 units/0.1 ml syringe IV ONE (05:00)
[2019-01-10] MEDS: insulin regular, human 100 UNIT in normal saline 100ml IV soln 99 ML IV SCH ×4 (05:40→16:19)
[2019-01-10] MEDS: dextrose 5%-1/2 normal saline 1,000 ML IV SCH (06:30)
--- NOTE | 2019-01-10 06:30 | NUR ---
Patient in room CICU 2009. I have received report from HEIKE Campuzano and had the opportunity to ask questions and assume patient care.
--- NOTE | 2019-01-10 06:38 | NUR ---
Problems reprioritized. Patient report given, questions answered & plan of care reviewed with Anca BURROUGHS.
[2019-01-10] MEDS: ESOMEPRAZOLE 40 MG VIAL IV SCH (07:43)
[2019-01-10] MEDS: lactobacillus rhamnosus 10,000 MMU CELLS/CAPSULE PO SCH ×2 (07:43→20:23)
[2019-01-10] MEDS: vasopressin inj. 20 UNIT in normal saline 100ml IV soln 39 ML IV SCH ×2 (07:43→16:00)
[2019-01-10] MEDS: FENTANYL-0.9 % NACL/PF 100 ML IV PRN ×3 (07:43→23:14)
[2019-01-10] MEDS: metoprolol tartrate 50mg tablet PO SCH ×2 (08:00→19:59)
--- NOTE | 2019-01-10 09:45 | NUR ---
1Unit of PRBC transfused per MD order for decreased H&H, no transfusion reaction noted, pt tolerated well, will repeat hemogram per protocol. Dr Key arrived on unit and assessed pt, updated on pt condition.
[2019-01-10 10:33] LABS: ALBUMIN 1.7 G/DL (3.4-5.0); ANION GAP 6 (8-16); BLOOD UREA NITROGEN 48 MG/DL (7-18); BUN/CREATININE RATIO 17.1 (5.4-32.0); CALCIUM 6.7 MG/DL (8.5-10.1); CHLORIDE 100 MMOL/L (99-107); CREATININE 2.81 MG/DL (0.60-1.10); GLUCOSE 184 MG/DL (70-104); MAGNESIUM 1.9 MG/DL (1.5-2.4); PHOSPHORUS 3.8 MG/DL (2.3-4.5); SODIUM 132 MMOL/L (135-145); TOTAL CARBON DIOXIDE 25.6 MMOL/L (24-32); eGFR 25 ML/MIN
[2019-01-10 11:19] LABS: MEAN CORPUSCULAR HEMOGLOBIN 29.2 PG (27.0-31.0); MEAN CORPUSCULAR HGB CONC 33.8 g/dL (33.0-36.5); MEAN CORPUSCULAR VOLUME 86.4 FL (78-98); MEAN PLATELET VOLUME 8.1 FL (7.4-10.4); PLATELET COUNT 213 X10'3 (140-440); RED BLOOD COUNT 2.28 X10'6 (4.70-6.10); RED CELL DISTRIBUTION WIDTH 16.6 % (11.5-14.5); WHITE BLOOD COUNT 12.9 X10'3 (4.5-11.0)
[2019-01-10 11:26] LABS: HEMATOCRIT 19.7 % (42.0-52.0); HEMOGLOBIN 6.7 g/dl (14.0-17.9)
--- NOTE | 2019-01-10 11:33 | NUR ---
Critical H&H result called to Dr. Key post blood transfusion. addition two unit PRBC order received.
[2019-01-10] MEDS: furosemide inj 100 MG in normal saline 100ml IV soln 90 ML IV SCH (13:49)
[2019-01-10 15:24] LABS: HEMOGLOBIN 7.1 g/dl (14.0-17.9); MEAN CORPUSCULAR HGB CONC 33.4 g/dL (33.0-36.5); MEAN CORPUSCULAR VOLUME 86.8 FL (78-98); MEAN PLATELET VOLUME 8.2 FL (7.4-10.4); PLATELET COUNT 206 X10'3 (140-440); RED BLOOD COUNT 2.44 X10'6 (4.70-6.10); RED CELL DISTRIBUTION WIDTH 17.1 % (11.5-14.5); WHITE BLOOD COUNT 12.4 X10'3 (4.5-11.0)
[2019-01-10 15:26] LABS: HEMATOCRIT 21.2 % (42.0-52.0)
[2019-01-10 16:44] LABS: ALBUMIN 1.6 G/DL (3.4-5.0); ANION GAP 7 (8-16); BLOOD UREA NITROGEN 48 MG/DL (7-18); BUN/CREATININE RATIO 17.3 (5.4-32.0); CHLORIDE 101 MMOL/L (99-107); CREATININE 2.78 MG/DL (0.60-1.10); GLUCOSE 135 MG/DL (70-104); PHOSPHORUS 3.8 MG/DL (2.3-4.5); POTASSIUM 4.5 MMOL/L (3.5-5.1); SODIUM 134 MMOL/L (135-145); TOTAL CARBON DIOXIDE 25.8 MMOL/L (24-32); eGFR 25 ML/MIN
--- NOTE | 2019-01-10 16:57 | NUR ---
Extended abd discussed with ZOYA Mauricio ordered received and additional laxatives to be started. Titrating vasoactive med to keep SBP > 100, prolonged QT noted on EKG, order received to DC amio gtt and start PO dose in am. third unit of PRBC transfusing per MD order, pt tolerating well.
[2019-01-10] MEDS ORDERED: VANCOMYCIN LEVEL IV ONE (17:30)
--- NOTE | 2019-01-10 18:01 | NUR ---
RN spoke with pharmacy regarding vanco trough result, okay to give 1800 dose vanco per pharmacy.
--- NOTE | 2019-01-10 18:22 | NUR ---
Problems reprioritized. Patient report given, questions answered & plan of care reviewed with HEIKE Campuzano.
--- NOTE | 2019-01-10 18:25 | NUR ---
Patient in room CICU 2009. I have received report from Anca BURROUGHS and had the opportunity to ask questions and assume patient care. pt on vent at 40% peep of 8, spo2 at 95%, vasopressin gtt to keep SBP greater than 100, versed gtt and fentanyl gtt for sedation and pain control, lasix gtt, insulin gtt, and D% 1/2 ns, all titratable medications will be titrated per protocol, see IV flow sheet for further information, all vasoactive medications infusing via central line. See interventions for further information. All monitoring alarms audible. Chest tubes to left lateral chest, water seal, small air leak, will changed dressing, no crepitus noted. Will continue to monitor.
[2019-01-10 19:55] LABS: HEMOGLOBIN 7.1 g/dl (14.0-17.9); MEAN CORPUSCULAR HEMOGLOBIN 29.2 PG (27.0-31.0); MEAN CORPUSCULAR HGB CONC 34.1 g/dL (33.0-36.5); MEAN CORPUSCULAR VOLUME 85.8 FL (78-98); MEAN PLATELET VOLUME 8.3 FL (7.4-10.4); PLATELET COUNT 201 X10'3 (140-440); RED BLOOD COUNT 2.44 X10'6 (4.70-6.10); RED CELL DISTRIBUTION WIDTH 16.5 % (11.5-14.5); WHITE BLOOD COUNT 11.3 X10'3 (4.5-11.0)
[2019-01-10 20:01] LABS: HEMATOCRIT 20.9 % (42.0-52.0)
[2019-01-10] MEDS: docusate sodium 100mg/10ml UD cup PO SCH (20:23)
[2019-01-10] MEDS: lactulose 20gm/30ml cup PO SCH (20:23)
[2019-01-10 21:21] LABS: PLATELET COUNT 206 X10'3 (140-440)
[2019-01-10 21:56] LABS: D-DIMER 4.61 MG/L FEU (0-0.50); PARTIAL THROMBOPLASTIN TIME 29 SECONDS (22-32)
[2019-01-10 22:36] LABS: ALBUMIN 1.7 G/DL (3.4-5.0); ANION GAP 7 (8-16); BLOOD UREA NITROGEN 51 MG/DL (7-18); BUN/CREATININE RATIO 18.3 (5.4-32.0); CALCIUM 7.1 MG/DL (8.5-10.1); CHLORIDE 100 MMOL/L (99-107); CREATININE 2.78 MG/DL (0.60-1.10); GLUCOSE 121 MG/DL (70-104); PHOSPHORUS 4.3 MG/DL (2.3-4.5); POTASSIUM 4.5 MMOL/L (3.5-5.1); SODIUM 134 MMOL/L (135-145); TOTAL CARBON DIOXIDE 26.6 MMOL/L (24-32); eGFR 25 ML/MIN
[2019-01-11] VITALS (26 sets, daily range): BP systolic 108–165; BP diastolic 45–78
[2019-01-11] MEDS: mineral oil/petrolatum ophthal oint EACHEYE SCH ×4 (02:19→21:16)
[2019-01-11] MEDS: dextrose 5%-1/2 normal saline 1,000 ML IV SCH ×2 (02:40→21:15)
[2019-01-11] MEDS: lactulose 20gm/30ml cup PO SCH ×2 (02:46→08:14)
[2019-01-11 02:48] LABS: BASOPHILS # (AUTO) 0.1 X10'3 (0-0.2); BASOPHILS % (AUTO) 0.5 % (0-1); EOSINOPHILS # (AUTO) 0.2 X10'3 (0-0.9); EOSINOPHILS % (AUTO) 1.7 % (0-6); HEMATOCRIT 23.8 % (42.0-52.0); LYMPHOCYTES # (AUTO) 0.6 X10'3 (1.1-4.8); LYMPHOCYTES % (AUTO) 4.3 % (21-51); MEAN CORPUSCULAR HEMOGLOBIN 29.3 PG (27.0-31.0); MEAN CORPUSCULAR HGB CONC 33.5 g/dL (33.0-36.5); MEAN CORPUSCULAR VOLUME 87.5 FL (78-98); MEAN PLATELET VOLUME 8.5 FL (7.4-10.4); MONOCYTES # (AUTO) 0.9 X10'3 (0-0.9); MONOCYTES % (AUTO) 7.2 % (2-12); NEUTROPHILS % (AUTO) 86.3 % (42-75); PLATELET COUNT 212 X10'3 (140-440); RED BLOOD COUNT 2.72 X10'6 (4.70-6.10); RED CELL DISTRIBUTION WIDTH 16.8 % (11.5-14.5); WHITE BLOOD COUNT 12.8 X10'3 (4.5-11.0)
[2019-01-11 03:01] LABS: ABG BASE EXCESS 1.5 mmol/L (-2.0-3.0); ABG HCO3 24.9 mmol/L (22.0-26.0); ABG OXYGEN SATURATION 96.3 % (95-98); ABG PCO2 (T) 34.1 mmHg (35.0-48.0); ABG PH (T) 7.481 (7.350-7.450); ABG PO2 (T) 89.7 mmHg (83-108); FCOHb 0.3 % (0.5-1.5); FMetHb 0.3 % (0.3-1.12); FO2Hb 95.7 % (94-100); MINUTE VOLUME 11 L/min; PEEP 8 cm H2O; RESPIRATORY RATE 20 b/min; RESPIRATORY RATE (OBSERVED) 20 b/min; TIDAL VOLUME 600 mL; TOTAL HEMOGLOBIN 8.9 G/dl (14.0-18.0)
[2019-01-11 03:03] LABS: ALANINE AMINOTRANSFERASE 361 U/L (12-78); ALBUMIN 1.7 G/DL (3.4-5.0); ALBUMIN/GLOBULIN RATIO 0.5 (1.1-1.5); ALKALINE PHOSPHATASE 59 IU/L (46-116); ANION GAP 8 (8-16); ASPARTATE AMINO TRANSFERASE 114 U/L (10-37); BLOOD UREA NITROGEN 48 MG/DL (7-18); BUN/CREATININE RATIO 17.7 (5.4-32.0); CALCIUM 6.9 MG/DL (8.5-10.1); CHLORIDE 101 MMOL/L (99-107); CREATININE 2.71 MG/DL (0.60-1.10); GLUCOSE 139 MG/DL (70-104); PHOSPHORUS 3.7 MG/DL (2.3-4.5); POTASSIUM 4.5 MMOL/L (3.5-5.1); SODIUM 134 MMOL/L (135-145); TOTAL CARBON DIOXIDE 25.2 MMOL/L (24-32); TOTAL PROTEIN 5.3 G/DL (6.4-8.2); eGFR 26 ML/MIN
[2019-01-11] MEDS: ipratropium/albuterol 3ml nebule NEB SCH ×6 (03:08→22:59)
[2019-01-11] MEDS: acetylcysteine 200 MG/ml 4ml vial INH SCH ×6 (03:08→23:19)
[2019-01-11 03:12] LABS: PARTIAL THROMBOPLASTIN TIME 29 SECONDS (22-32)
[2019-01-11] MEDS: furosemide 20 MG/2 ML vial IV SCH (04:00)
--- NOTE | 2019-01-11 05:37 | NUR ---
Late entry: to CT scan at 2104, pt has large distended abdomen, bolus of versed and fentanyl given during scan, pt tolerated well, FiO2 increased to 60% upon return to pt room d/t lowered spo2 of 82%, titrated back down to 40%.
[2019-01-11] MEDS: vasopressin inj. 20 UNIT in normal saline 100ml IV soln 39 ML IV SCH ×2 (06:00→11:05)
--- NOTE | 2019-01-11 06:24 | NUR ---
Patient in room CICU 2009. I have received report from Ac BURROUGHS and had the opportunity to ask questions and assume patient care.
--- NOTE | 2019-01-11 06:27 | NUR ---
Patient in room CICU 2009. I have received report from Tatianna BURROUGHS and had the opportunity to ask questions and assume patient care.
[2019-01-11] MEDS: FENTANYL-0.9 % NACL/PF 100 ML IV PRN ×3 (07:20→23:45)
[2019-01-11] MEDS ORDERED: amiodarone 200mg tablet PO SCH (08:00)
[2019-01-11] MEDS ORDERED: levoFLOXACIN-Levaquin 750MG/D5 150 ML IV SCH (08:00)
[2019-01-11] MEDS: ESOMEPRAZOLE 40 MG VIAL IV SCH (08:09)
[2019-01-11] MEDS: piperacillin/tazo 4.5gm/100ml 100 ML IV SCH ×2 (08:12)
[2019-01-11] MEDS: insulin regular, human 100 UNIT in normal saline 100ml IV soln 99 ML IV SCH ×2 (08:12)
[2019-01-11] MEDS: docusate sodium 100mg/10ml UD cup PO SCH (08:14)
[2019-01-11] MEDS: lactobacillus rhamnosus 10,000 MMU CELLS/CAPSULE PO SCH (08:14)
[2019-01-11] MEDS: methylnaltrexone br 12mg/0.6ml inj***SubQ only SQ SCH (08:14)
[2019-01-11] MEDS: metoprolol tartrate 50mg tablet PO SCH (08:14)
[2019-01-11] MEDS: VANCOmycin 1250MG/NS 250ml Bag 250 ML IV SCH ×2 (08:15→21:00)
[2019-01-11] MEDS: furosemide inj 100 MG in normal saline 100ml IV soln 90 ML IV SCH (08:20)
--- NOTE | 2019-01-11 09:03 | NUR ---
advanced ET tube to 26, confirmed with auscultation of bilateral breath sounds and CXR. changed flow sensor out. pt vitals are within stable ranges. Addendum: 01/11/19 at 0907 by Jarek Willams RT Amended: Links added.
[2019-01-11 09:30] LABS: ALBUMIN 1.8 G/DL (3.4-5.0); ANION GAP 6 (8-16); BLOOD UREA NITROGEN 50 MG/DL (7-18); CALCIUM 7.7 MG/DL (8.5-10.1); CHLORIDE 102 MMOL/L (99-107); CREATININE 2.63 MG/DL (0.60-1.10); GLUCOSE 121 MG/DL (70-104); POTASSIUM 4.4 MMOL/L (3.5-5.1); SODIUM 136 MMOL/L (135-145); TOTAL CARBON DIOXIDE 27.9 MMOL/L (24-32); eGFR 27 ML/MIN
--- NOTE | 2019-01-11 11:09 | NUR ---
PRESSURE ULCER EDUCATION: DEFINITION: A pressure ulcer is an area of skin that breaks down when you stay in one position too long. The constant pressure against the skin reduces the blood flow to that area and the affected tissue dies. CAUSES: "Being bedridden or in a wheelchair "Fragile skin "Having a chronic condition, such as diabetes or vascular disease "Inability to move certain parts of your body without assistance "Older age "Incontinence of urine or stool SYMPTOMS: "A reddened area that DOES NOT turn white when pressed on - this can be the beginning of a pressure ulcer "A blister, deep sore or a crater - these can be advanced pressure ulcers FIRST AID: "Relieve the pressure on this area "Keep the area clean and dry "Call your primary doctor if you see any of the above symptoms "DO NOT massage the area "DO NOT use a donut shaped or ring shaped pillow- these actually interfere with the blood flow and cause complications PREVENTION: "Check for pressure ulcers everyday "Change position at least every two hours to relieve pressure "Use items that help relieve pressure- pillows, sheepskin, foam padding, and powders. "Keep skin clean and dry "Eat healthy well balanced meals "Exercise daily IF YOU SEE ANY OF THESE SYMPTOMS WHILE IN THE HOSPITAL - TELL YOUR NURSE IMMEDIATELY. IF YOU SEE ANY OF THESE SYMPTOMS WHILE AT HOME OR HAVE ANY QUESTIONS OR CONCERNS ABOUT PRESSURE ULCERS - CALL YOUR PRIMARY DOCTOR IMMEDIATELY. Addendum: 01/11/19 at 1109 by Estela Richey RN Amended: Links added.
[2019-01-11] MEDS: midazolam 100mg in NS 100ml 100 ML IV PRN (11:11)
[2019-01-11 11:56] LABS: PREALBUMIN 20.4 MG/DL (19-36)
--- NOTE | 2019-01-11 12:15 | NUR ---
Reassessment, patient still receiving trickle tube feeding today at 20 ml/hr with vital high protein. No BM in 5 days, last received relistor today, it is scheduled q [address] shows moderate stool in abdomen. Will continue to follow and monitor BM and advancement from trickle to goal rate for TF when OK by MD. Pt has third spacing of fluid in abdomen per MD note. Recommendations: 1) OGTF per MD at 20ml/hr using Vital High Protein 2) IF TF to advance; rec Vital High Protein at 95ml/hr goal; to provide 2280 ml fluid, 2280kcals, 1915ml free water, and 200g protein. Advance 20ml Q8 to goal as tolerated. 3) prealbumin Q /, daily wts 4) additional water flush per geotechnician at this time 5) when extubated and diet is advanced, send Double protein TID; Grind all food d/t difficulty chewing per pt request Addendum: 01/11/19 at [address] Amended: Links added.
--- NOTE | 2019-01-11 13:35 | NUR ---
wound consult for surgical wound left chest, already noted. Will continue to follow. Addendum: 01/11/19 at [address] Amended: Links added.
--- NOTE | 2019-01-11 13:39 | NUR ---
1230- Dr Ortega rounded- plan is for bronchoscopy today, Patient complaining of pain increased fentanyl to 150 with good results. Addendum: 01/11/19 at 1426 by Ac Medley RN Md also asked if patient was to goal on TF, contacted dietary, goal for TF is 95. Will advance per recommendations.
[2019-01-11] MEDS ORDERED: losartan 50mg tablet NG SCH (14:01)
[2019-01-11] MEDS: lactulose 20gm/30ml cup OGT SCH ×2 (14:04→21:16)
[2019-01-11] MEDS: furosemide 10 MG/1 ML 10ml inj IV SCH ×2 (14:04→21:16)
--- NOTE | 2019-01-11 14:24 | NUR ---
Follow up, spoke with bedside RN regarding patient's trickle tube feeding, per RN the surgeon is OK to advance to goal. Discussed with RN the recs for TF advancement and recs are available below. Recommendations: 1)For advancement recommend continue with Vital High Protein and advance as tolerated by 20 ml q 8 hours to goal of 95ml/hr goal; to provide 2280 ml fluid, 2280kcals, 1915ml free water, and 200g protein. 2) prealbumin Q /, daily wts 4) additional water flush per rn cardiac at this time 5) when extubated and diet is advanced, send Double protein TID; Grind all food d/t difficulty chewing per pt request Addendum: 01/11/19 at [address] Amended: Links added.
[2019-01-11 16:32] LABS: ALBUMIN 1.8 G/DL (3.4-5.0); ANION GAP 5 (8-16); BLOOD UREA NITROGEN 47 MG/DL (7-18); BUN/CREATININE RATIO 18.5 (5.4-32.0); CALCIUM 7.2 MG/DL (8.5-10.1); CHLORIDE 103 MMOL/L (99-107); CREATININE 2.54 MG/DL (0.60-1.10); GLUCOSE 121 MG/DL (70-104); PHOSPHORUS 3.6 MG/DL (2.3-4.5); SODIUM 137 MMOL/L (135-145); TOTAL CARBON DIOXIDE 29.2 MMOL/L (24-32); eGFR 28 ML/MIN
--- NOTE | 2019-01-11 17:40 | NUR ---
1730 pt able to communicate needs even while intubated, awaiting MD for bronch. All pressors off and CI an CO are good. pt continues to have some oral bleeding after ETT adjustment earlier in shift. SO remain at bedside.
--- NOTE | 2019-01-11 18:31 | NUR ---
Problems reprioritized. Patient report given, questions answered & plan of care reviewed with Tatianna.
[2019-01-11] MEDS: docusate sodium 100mg/10ml UD cup OGT SCH (21:16)
[2019-01-11] MEDS: lactobacillus rhamnosus 10,000 MMU CELLS/CAPSULE NG SCH (21:16)
[2019-01-11 22:52] LABS: ALBUMIN 1.8 G/DL (3.4-5.0); ANION GAP 6 (8-16); BLOOD UREA NITROGEN 48 MG/DL (7-18); CALCIUM 7.8 MG/DL (8.5-10.1); CHLORIDE 105 MMOL/L (99-107); GLUCOSE 108 MG/DL (70-104); PHOSPHORUS 3.6 MG/DL (2.3-4.5); POTASSIUM 3.7 MMOL/L (3.5-5.1); SODIUM 137 MMOL/L (135-145); TOTAL CARBON DIOXIDE 26.3 MMOL/L (24-32); eGFR 30 ML/MIN
[2019-01-12] VITALS (24 sets, daily range): BP systolic 110–169; BP diastolic 42–59
[2019-01-12] MEDS: lactulose 20gm/30ml cup OGT SCH ×4 (02:16→20:00)
[2019-01-12] MEDS: mineral oil/petrolatum ophthal oint EACHEYE SCH ×4 (02:17→20:44)
[2019-01-12] MEDS: furosemide 10 MG/1 ML 10ml inj IV SCH ×3 (02:17→21:46)
[2019-01-12 02:43] LABS: BASOPHILS # (AUTO) 0.1 X10'3 (0-0.2); BASOPHILS % (AUTO) 0.6 % (0-1); EOSINOPHILS # (AUTO) 0.2 X10'3 (0-0.9); EOSINOPHILS % (AUTO) 2.2 % (0-6); HEMATOCRIT 24.4 % (42.0-52.0); HEMOGLOBIN 8.3 g/dl (14.0-17.9); LYMPHOCYTES # (AUTO) 0.5 X10'3 (1.1-4.8); MEAN CORPUSCULAR HEMOGLOBIN 29.7 PG (27.0-31.0); MEAN CORPUSCULAR VOLUME 87.4 FL (78-98); MEAN PLATELET VOLUME 8.2 FL (7.4-10.4); MONOCYTES # (AUTO) 0.9 X10'3 (0-0.9); MONOCYTES % (AUTO) 8.6 % (2-12); NEUTROPHILS # (AUTO) 8.7 X10'3 (1.8-7.7); NEUTROPHILS % (AUTO) 83.6 % (42-75); PARTIAL THROMBOPLASTIN TIME 28 SECONDS (22-32); PLATELET COUNT 237 X10'3 (140-440); RED BLOOD COUNT 2.79 X10'6 (4.70-6.10); WHITE BLOOD COUNT 10.5 X10'3 (4.5-11.0)
[2019-01-12 02:44] LABS: ALANINE AMINOTRANSFERASE 295 U/L (12-78); ALBUMIN 1.7 G/DL (3.4-5.0); ALBUMIN/GLOBULIN RATIO 0.4 (1.1-1.5); ALKALINE PHOSPHATASE 67 IU/L (46-116); ANION GAP 6 (8-16); ASPARTATE AMINO TRANSFERASE 96 U/L (10-37); BILIRUBIN,TOTAL 0.9 MG/DL (0.1-1.0); BLOOD UREA NITROGEN 47 MG/DL (7-18); BUN/CREATININE RATIO 18.2 (5.4-32.0); CALCIUM 7.4 MG/DL (8.5-10.1); CHLORIDE 104 MMOL/L (99-107); CREATININE 2.58 MG/DL (0.60-1.10); GLUCOSE 121 MG/DL (70-104); PHOSPHORUS 3.4 MG/DL (2.3-4.5); POTASSIUM 3.7 MMOL/L (3.5-5.1); SODIUM 138 MMOL/L (135-145); TOTAL CARBON DIOXIDE 27.7 MMOL/L (24-32); TOTAL PROTEIN 5.5 G/DL (6.4-8.2); eGFR 27 ML/MIN
[2019-01-12] MEDS: ipratropium/albuterol 3ml nebule NEB SCH ×6 (03:18→23:08)
[2019-01-12] MEDS: acetylcysteine 200 MG/ml 4ml vial INH SCH ×6 (03:18→23:08)
[2019-01-12] MEDS: midazolam 100mg in NS 100ml 100 ML IV PRN ×3 (03:26→21:47)
[2019-01-12] MEDS: FENTANYL-0.9 % NACL/PF 100 ML IV PRN ×4 (04:53→21:47)
[2019-01-12 05:11] LABS: ABG BASE EXCESS 1.1 mmol/L (-2.0-3.0); ABG OXYGEN SATURATION 94.7 % (95-98); ABG PCO2 (T) 44.1 mmHg (35.0-48.0); ABG PH (T) 7.391 (7.350-7.450); ABG PO2 (T) 85.7 mmHg (83-108); FCOHb 0.6 % (0.5-1.5); FMetHb 0.1 % (0.3-1.12); MINUTE VOLUME 13 L/min; PATIENT TEMPERATURE 37.6; PEEP 8 cm H2O; RESPIRATORY RATE 20 b/min; RESPIRATORY RATE (OBSERVED) 20 b/min; TIDAL VOLUME 600 mL; TOTAL HEMOGLOBIN 9.2 G/dl (14.0-18.0)
--- NOTE | 2019-01-12 06:25 | NUR ---
Problems reprioritized. Patient report given, questions answered & plan of care reviewed with Anca BURROUGHS.
--- NOTE | 2019-01-12 06:30 | NUR ---
Patient in room CICU 2009. I have received report from HEIKE Campuzano and had the opportunity to ask questions and assume patient care.
[2019-01-12] MEDS: docusate sodium 100mg/10ml UD cup OGT SCH ×2 (07:55→20:00)
[2019-01-12] MEDS: ESOMEPRAZOLE 40 MG VIAL IV SCH (07:56)
[2019-01-12] MEDS: amiodarone 200mg tablet OGT SCH (07:57)
[2019-01-12] MEDS: VANCOmycin 1250MG/NS 250ml Bag 250 ML IV SCH ×2 (07:57→20:00)
[2019-01-12] MEDS: lactobacillus rhamnosus 10,000 MMU CELLS/CAPSULE NG SCH ×2 (07:57→20:44)
--- NOTE | 2019-01-12 10:30 | NUR ---
pt is intubated and sedated, arousable with voice, follows verbal commands, tolerating TF well with low residuals. multiple large, loose BM noted in am. Dr. Tatum arrived on unit and assessed pt, updated on pt condition, medicated pt per MD order.
--- NOTE | 2019-01-12 10:35 | NUR ---
Recommend additional water flush using 200 ml water q 4, discussed with and RN. TF is being tolerated, increasing up to goal as tolerated, it is at 80 ml/hr, goal is 95 ml/hr. Recommendations: 1)For advancement recommend continue with Vital High Protein and advance as tolerated by 20 ml q 8 hours to goal of 95ml/hr goal; to provide 2280 ml fluid, 2280kcals, 1915ml free water, and 200g protein. 2) prealbumin Q /, daily wts 4) additional water flush 200 ml q 4, discussed with MD. 5) when extubated and diet is advanced, send Double protein TID; Grind all food d/t difficulty chewing per pt request Addendum: 01/12/19 at [address] Amended: Links added.
--- NOTE | 2019-01-12 10:37 | NUR ---
Recommend additional water flush using 200 ml water q 4, discussed with and RN. TF is being tolerated, increasing up to goal as tolerated, it is at 80 ml/hr, goal is 95 ml/hr. Recommendations: 1)For advancement recommend continue with Vital High Protein and advance as tolerated by 20 ml q 8 hours to goal of 95ml/hr goal; to provide 2280 ml fluid, 2280kcals, 1915ml free water, and 200g protein. 2) prealbumin Q /, daily wts 4) additional water flush 200 ml q 4, discussed with MD. 5) when extubated and diet is advanced, send Double protein TID; Grind all food d/t difficulty chewing per pt request Addendum: 01/12/19 at [address] Amended: Links added.
--- NOTE | 2019-01-12 13:52 | NUR ---
Dr. Ortega arrived on unit and assessed pt, updated on pt condition. Okay to turn peep down from 8 to 5, start weaning off vent and sedation per protocol. Place pt on CPAP mode for one to two hours a day as tolerated. updated family on plan of care.
--- NOTE | 2019-01-12 18:06 | NUR ---
Attempted to titrate Fio2 to 30% on vent. pt desat to mid to high 80s. able to suction large amt of secretions out of ETT. pt follows commands with coughing. Titrated FiO2 back up to 40%.
--- NOTE | 2019-01-12 18:39 | NUR ---
Problems reprioritized. Patient report given, questions answered & plan of care reviewed with HEIKE Gonzales.
[2019-01-12] MEDS ORDERED: VANCOMYCIN LEVEL IV ONE (19:30)
--- NOTE | 2019-01-12 20:10 | NUR ---
MARYANN TR 25.8 , PHARMACIST MADE AWARE , HOLD DOSE FOR NOW PER PHARMACIST AND START ANOTHER DOSE IN AM
[2019-01-13] VITALS (26 sets, daily range): BP systolic 125–164; BP diastolic 47–73
[2019-01-13] MEDS: lactulose 20gm/30ml cup OGT SCH ×2 (02:00→07:13)
[2019-01-13] MEDS: mineral oil/petrolatum ophthal oint EACHEYE SCH ×4 (02:17→20:02)
[2019-01-13 02:30] LABS: BASOPHILS # (AUTO) 0.1 X10'3 (0-0.2); BASOPHILS % (AUTO) 0.9 % (0-1); EOSINOPHILS # (AUTO) 0.2 X10'3 (0-0.9); EOSINOPHILS % (AUTO) 2.4 % (0-6); HEMATOCRIT 24.1 % (42.0-52.0); HEMOGLOBIN 8.2 g/dl (14.0-17.9); LYMPHOCYTES # (AUTO) 0.5 X10'3 (1.1-4.8); LYMPHOCYTES % (AUTO) 5.4 % (21-51); MEAN CORPUSCULAR HEMOGLOBIN 29.7 PG (27.0-31.0); MEAN CORPUSCULAR HGB CONC 33.9 g/dL (33.0-36.5); MEAN CORPUSCULAR VOLUME 87.4 FL (78-98); MEAN PLATELET VOLUME 8.1 FL (7.4-10.4); MONOCYTES # (AUTO) 0.8 X10'3 (0-0.9); MONOCYTES % (AUTO) 8.7 % (2-12); NEUTROPHILS # (AUTO) 7.8 X10'3 (1.8-7.7); NEUTROPHILS % (AUTO) 82.6 % (42-75); PLATELET COUNT 238 X10'3 (140-440); RED BLOOD COUNT 2.76 X10'6 (4.70-6.10); RED CELL DISTRIBUTION WIDTH 17.7 % (11.5-14.5); WHITE BLOOD COUNT 9.5 X10'3 (4.5-11.0)
[2019-01-13 02:43] LABS: ALANINE AMINOTRANSFERASE 233 U/L (12-78); ALBUMIN 1.7 G/DL (3.4-5.0); ALBUMIN/GLOBULIN RATIO 0.4 (1.1-1.5); ALKALINE PHOSPHATASE 67 IU/L (46-116); ANION GAP 6 (8-16); ASPARTATE AMINO TRANSFERASE 75 U/L (10-37); BILIRUBIN,TOTAL 0.9 MG/DL (0.1-1.0); BLOOD UREA NITROGEN 52 MG/DL (7-18); BUN/CREATININE RATIO 24.5 (5.4-32.0); CALCIUM 7.6 MG/DL (8.5-10.1); CHLORIDE 108 MMOL/L (99-107); CREATININE 2.12 MG/DL (0.60-1.10); GLUCOSE 90 MG/DL (70-104); POTASSIUM 3.9 MMOL/L (3.5-5.1); SODIUM 140 MMOL/L (135-145); TOTAL CARBON DIOXIDE 26.1 MMOL/L (24-32); TOTAL PROTEIN 5.7 G/DL (6.4-8.2); eGFR 34 ML/MIN
[2019-01-13 02:44] LABS: PARTIAL THROMBOPLASTIN TIME 28 SECONDS (22-32)
[2019-01-13] MEDS: ipratropium/albuterol 3ml nebule NEB SCH ×6 (03:08→23:30)
[2019-01-13] MEDS: acetylcysteine 200 MG/ml 4ml vial INH SCH ×6 (03:08→23:29)
[2019-01-13] MEDS: FENTANYL-0.9 % NACL/PF 100 ML IV PRN ×3 (04:14→20:07)
[2019-01-13 05:16] LABS: ABG HCO3 20.4 mmol/L (22.0-26.0); ABG OXYGEN SATURATION 96.1 % (95-98); ABG PCO2 (T) 35.2 mmHg (35.0-48.0); ABG PH (T) 7.384 (7.350-7.450); ABG PO2 (T) 88.5 mmHg (83-108); FCOHb 0.9 % (0.5-1.5); FO2Hb 95.2 % (94-100); MINUTE VOLUME 11 L/min; PATIENT TEMPERATURE 37.5; PEEP 5 cm H2O; RESPIRATORY RATE 20 b/min; RESPIRATORY RATE (OBSERVED) 20 b/min; TIDAL VOLUME 600 mL
[2019-01-13] MEDS: docusate sodium 100mg/10ml UD cup OGT SCH ×2 (07:14→19:53)
[2019-01-13] MEDS: methylnaltrexone br 12mg/0.6ml inj***SubQ only SQ SCH (08:00)
[2019-01-13] MEDS: amiodarone 200mg tablet OGT SCH (08:25)
[2019-01-13] MEDS: vancomycin/NS 1 GM ADD-VANTAGE 250 ML IV SCH ×2 (08:25→20:06)
[2019-01-13] MEDS: lactobacillus rhamnosus 10,000 MMU CELLS/CAPSULE NG SCH ×2 (08:25→20:03)
[2019-01-13] MEDS: losartan 50mg tablet OGT SCH (08:26)
[2019-01-13] MEDS: furosemide 10 MG/1 ML 10ml inj IV SCH ×2 (08:27→20:02)
[2019-01-13] MEDS: ESOMEPRAZOLE 40 MG VIAL IV SCH (08:28)
[2019-01-13] MEDS: dexmedetomidin/NS 400mcg/100ml 100 ML IV SCH ×3 (11:17→20:06)
--- NOTE | 2019-01-13 11:45 | NUR ---
Per Dr. Tatum and Dr. Ortega, jayay to D/C rhonda-trac monitoring. Keep ART line in for now; aware there is about a 35mmHg difference in SBP and difference of aprox 20mmHg for MAP; continue to use ART line. Wean Versed and start Precedex to attempt weaning parameters.
--- NOTE | 2019-01-13 11:59 | NUR ---
Reassessment: Pt remains intubated and tolerating TF at goal rate of 95 mL/hr with GRV WNL documented at 0 mL with 200 mL water flush Q4H. Pt s/p thoracotomy with evacuation of hemothorax. LBM 7/ documented as diarrhea, pt receiving routine Lactulose and Relistor. Relistor to be changed to PRN d/t diarrhea. Will continue to follow. Recommendations: 1)For advancement recommend continue with Vital High Protein and advance as tolerated by 20 ml q 8 hours to goal of 95ml/hr goal; to provide 2280 ml fluid, 2280kcals, 1915ml free water, and 200g protein. 2) prealbumin Q /, daily wts 4) additional water flush 200 ml q 4, discussed with MD. 5) when extubated and diet is advanced, send Double protein TID; Grind all food d/t difficulty chewing per pt request Addendum: 01/13/19 at [address] Amended: Links added.
--- NOTE | 2019-01-13 18:15 | NUR ---
Patient in room CICU 2009. I have received report and had the opportunity to ask questions and assume patient care.
--- NOTE | 2019-01-13 18:21 | NUR ---
Problems reprioritized. Patient report given, questions answered & plan of care reviewed with Deep BURROUGHS.
--- NOTE | 2019-01-13 18:25 | NUR ---
Orientee documentation: I have reviewed and agree with all interventions, medications, and assessments performed and documented by Sade BURROUGHS.
[2019-01-14] VITALS (23 sets, daily range): BP systolic 125–177; BP diastolic 41–81
[2019-01-14] MEDS: dexmedetomidin/NS 400mcg/100ml 100 ML IV SCH ×5 (00:29→19:14)
[2019-01-14] MEDS: mineral oil/petrolatum ophthal oint EACHEYE SCH ×4 (01:43→19:41)
[2019-01-14 01:58] LABS: PARTIAL THROMBOPLASTIN TIME 27 SECONDS (22-32)
[2019-01-14 01:59] LABS: ALANINE AMINOTRANSFERASE 188 U/L (12-78); ALBUMIN 1.7 G/DL (3.4-5.0); ALBUMIN/GLOBULIN RATIO 0.4 (1.1-1.5); ALKALINE PHOSPHATASE 71 IU/L (46-116); ANION GAP 9 (8-16); ASPARTATE AMINO TRANSFERASE 56 U/L (10-37); BILIRUBIN,TOTAL 0.8 MG/DL (0.1-1.0); BLOOD UREA NITROGEN 53 MG/DL (7-18); CALCIUM 7.7 MG/DL (8.5-10.1); CHLORIDE 107 MMOL/L (99-107); CREATININE 1.71 MG/DL (0.60-1.10); GLUCOSE 187 MG/DL (70-104); PHOSPHORUS 3.6 MG/DL (2.3-4.5); POTASSIUM 4.1 MMOL/L (3.5-5.1); SODIUM 141 MMOL/L (135-145); TOTAL CARBON DIOXIDE 24.8 MMOL/L (24-32); TOTAL PROTEIN 5.9 G/DL (6.4-8.2); eGFR 44 ML/MIN
[2019-01-14 02:07] LABS: BASOPHILS # (AUTO) 0.1 X10'3 (0-0.2); BASOPHILS % (AUTO) 0.9 % (0-1); EOSINOPHILS # (AUTO) 0.3 X10'3 (0-0.9); EOSINOPHILS % (AUTO) 2.6 % (0-6); HEMOGLOBIN 8.6 g/dl (14.0-17.9); LYMPHOCYTES # (AUTO) 0.6 X10'3 (1.1-4.8); LYMPHOCYTES % (AUTO) 5.7 % (21-51); MEAN CORPUSCULAR HEMOGLOBIN 30.1 PG (27.0-31.0); MEAN CORPUSCULAR HGB CONC 34.5 g/dL (33.0-36.5); MEAN CORPUSCULAR VOLUME 87.1 FL (78-98); MEAN PLATELET VOLUME 8.1 FL (7.4-10.4); MONOCYTES # (AUTO) 0.9 X10'3 (0-0.9); MONOCYTES % (AUTO) 8.3 % (2-12); NEUTROPHILS # (AUTO) 8.7 X10'3 (1.8-7.7); NEUTROPHILS % (AUTO) 82.5 % (42-75); PLATELET COUNT 238 X10'3 (140-440); RED BLOOD COUNT 2.87 X10'6 (4.70-6.10); RED CELL DISTRIBUTION WIDTH 17.2 % (11.5-14.5); WHITE BLOOD COUNT 10.5 X10'3 (4.5-11.0)
[2019-01-14] MEDS: acetylcysteine 200 MG/ml 4ml vial INH SCH ×5 (03:12→20:26)
[2019-01-14] MEDS: ipratropium/albuterol 3ml nebule NEB SCH ×4 (03:12→20:25)
--- NOTE | 2019-01-14 03:20 | NUR ---
rt placed pt on spontaneous. pt is tolerating the change in vent settings. will continue to monitor
[2019-01-14] MEDS: FENTANYL-0.9 % NACL/PF 100 ML IV PRN (04:16)
[2019-01-14 04:31] LABS: ABG BASE EXCESS 1.8 mmol/L (-2.0-3.0); ABG HCO3 25.7 mmol/L (22.0-26.0); ABG OXYGEN SATURATION 96.6 % (95-98); ABG PCO2 (T) 37.2 mmHg (35.0-48.0); ABG PH (T) 7.457 (7.350-7.450); ABG PO2 (T) 97.9 mmHg (83-108); FCOHb 0.7 % (0.5-1.5); FMetHb 0.3 % (0.3-1.12); FO2Hb 95.6 % (94-100); MINUTE VOLUME 12 L/min; PEEP 5 cm H2O; RESPIRATORY RATE (OBSERVED) 23 b/min; TIDAL VOLUME 515 mL; TOTAL HEMOGLOBIN 9.2 G/dl (14.0-18.0)
[2019-01-14] MEDS: furosemide 10 MG/1 ML 10ml inj IV SCH ×2 (07:41→19:55)
[2019-01-14] MEDS: ESOMEPRAZOLE 40 MG VIAL IV SCH (07:41)
[2019-01-14] MEDS: vancomycin/NS 1 GM ADD-VANTAGE 250 ML IV SCH ×2 (07:42→19:56)
[2019-01-14] MEDS: losartan 50mg tablet OGT SCH (07:42)
[2019-01-14] MEDS: lactobacillus rhamnosus 10,000 MMU CELLS/CAPSULE NG SCH ×2 (07:42→19:55)
[2019-01-14] MEDS: amiodarone 200mg tablet OGT SCH (07:42)
[2019-01-14] MEDS: docusate sodium 100mg/10ml UD cup OGT SCH ×2 (07:52→19:43)
[2019-01-14] MEDS ORDERED: naloxone 0.4 mg/ml inj IV PRN (09:50)
[2019-01-14] MEDS ORDERED: racepinephrine 11.25mg/0.5ml nebule NEB PRN (09:50)
[2019-01-14] MEDS ORDERED: CADD PCA waste documentation MC PRN (09:50)
--- NOTE | 2019-01-14 10:15 | NUR ---
Extubated per MD orders. Patient tolerated well. Placed on 6L NC to maintain 88%sats. Art line DC per Md order
[2019-01-14] MEDS: ipratropium/albuterol 3ml nebule NEB PRN ×2 (10:30→13:15)
[2019-01-14] MEDS: HYDROmorphone/NS 1 mg/ml CADD 50 ML IV SCH ×8 (11:00→23:00)
--- NOTE | 2019-01-14 16:40 | NUR ---
rectal tube discontinued; patient alert and oriented, able to express needs, continent of bowel, and no liquid stool this shift
--- NOTE | 2019-01-14 18:30 | NUR ---
Patient in room CICU 2009. I have received report from HEIKE Nation and had the opportunity to ask questions and assume patient care.
[2019-01-14] MEDS ORDERED: VANCOMYCIN LEVEL IV ONE (19:30)
[2019-01-15] VITALS (23 sets, daily range): BP systolic 115–160; BP diastolic 61–88
--- NOTE | 2019-01-15 00:30 | NUR ---
Pt all of the sudden very anxious, SOB, and diaphoretic. Lungs clear to auscultation, blood sugar within normal range, CXR and lab work obtained. Received orders from Ranjana Amato for Lasix and to place chest tubes back to suction from water seal. Precedex increased due to pt anxiety/agitation, responded well. CXR send to virtual radiology for review. Addendum: 01/15/19 at 0502 by Wendie Clemons RN HFNC increased to 8L from 4L
[2019-01-15] MEDS: dexmedetomidin/NS 400mcg/100ml 100 ML IV SCH ×5 (00:59→21:52)
[2019-01-15] MEDS ORDERED: furosemide 40mg/4ml inj IV ONE (01:00)
[2019-01-15] MEDS: HYDROmorphone/NS 1 mg/ml CADD 50 ML IV SCH ×12 (01:00→23:50)
[2019-01-15 01:05] LABS: BASOPHILS # (AUTO) 0.2 X10'3 (0-0.2); BASOPHILS % (AUTO) 1.4 % (0-1); EOSINOPHILS # (AUTO) 0.4 X10'3 (0-0.9); EOSINOPHILS % (AUTO) 2.6 % (0-6); HEMATOCRIT 31.6 % (42.0-52.0); HEMOGLOBIN 10.6 g/dl (14.0-17.9); LYMPHOCYTES # (AUTO) 1.2 X10'3 (1.1-4.8); LYMPHOCYTES % (AUTO) 7.8 % (21-51); MEAN CORPUSCULAR HGB CONC 33.4 g/dL (33.0-36.5); MEAN CORPUSCULAR VOLUME 86.8 FL (78-98); MEAN PLATELET VOLUME 8.1 FL (7.4-10.4); MONOCYTES # (AUTO) 1.1 X10'3 (0-0.9); NEUTROPHILS # (AUTO) 12.7 X10'3 (1.8-7.7); NEUTROPHILS % (AUTO) 81.2 % (42-75); PLATELET COUNT 292 X10'3 (140-440); RED BLOOD COUNT 3.64 X10'6 (4.70-6.10); WHITE BLOOD COUNT 15.6 X10'3 (4.5-11.0)
[2019-01-15] MEDS: mineral oil/petrolatum ophthal oint EACHEYE SCH ×2 (01:10→08:00)
[2019-01-15 01:28] LABS: ALANINE AMINOTRANSFERASE 195 U/L (12-78); ALBUMIN/GLOBULIN RATIO 0.4 (1.1-1.5); ALKALINE PHOSPHATASE 83 IU/L (46-116); ANION GAP 6 (8-16); ASPARTATE AMINO TRANSFERASE 69 U/L (10-37); BILIRUBIN,TOTAL 1.1 MG/DL (0.1-1.0); BLOOD UREA NITROGEN 44 MG/DL (7-18); BUN/CREATININE RATIO 29.5 (5.4-32.0); CALCIUM 7.9 MG/DL (8.5-10.1); CHLORIDE 106 MMOL/L (99-107); CREATININE 1.49 MG/DL (0.60-1.10); GLUCOSE 123 MG/DL (70-104); POTASSIUM 4.6 MMOL/L (3.5-5.1); SODIUM 140 MMOL/L (135-145); TOTAL CARBON DIOXIDE 28.4 MMOL/L (24-32); TOTAL PROTEIN 6.5 G/DL (6.4-8.2); eGFR 51 ML/MIN
[2019-01-15] MEDS: ipratropium/albuterol 3ml nebule NEB SCH ×4 (03:23→20:49)
--- NOTE | 2019-01-15 06:15 | NUR ---
Problems reprioritized. Patient report given, questions answered & plan of care reviewed with HEIKE Nation.
[2019-01-15] MEDS: losartan 50mg tablet OGT SCH (07:46)
[2019-01-15] MEDS: lactobacillus rhamnosus 10,000 MMU CELLS/CAPSULE NG SCH ×2 (07:46→20:28)
[2019-01-15] MEDS: amiodarone 200mg tablet OGT SCH (07:46)
[2019-01-15] MEDS: methylnaltrexone br 12mg/0.6ml inj***SubQ only SQ SCH (07:46)
[2019-01-15] MEDS: furosemide 10 MG/1 ML 10ml inj IV SCH (07:50)
[2019-01-15] MEDS: docusate sodium 100mg/10ml UD cup OGT SCH ×2 (08:00→20:28)
[2019-01-15] MEDS: VANCOmycin 1250MG/NS 250ml Bag 250 ML IV SCH ×2 (08:21→20:29)
[2019-01-15] MEDS: ESOMEPRAZOLE 40 MG VIAL IV SCH (08:21)
--- NOTE | 2019-01-15 12:47 | NUR ---
Reassessment: Pt has been extubated, TF d/c'ed, and diet advanced to mechanical soft CHO controlled. Pt documented with 50% PO intake of milk only first meal since diet advancement. Prior to intubation pt with fluctuating PO intake initially 100% then down to 25% closer to the time of intubation. Pt also with grind all prior to intubation, d/w dietary to resume that texture modification per pt prior request. LBM 01/13 documented with 3500 mL stool output per I&O; pt with routine Colace and Relistor. Per med list Colace not given today d/t not being needed. Will continue to follow closely and monitor need for ONS. Recommendations: 1) Continue [facility] soft CHO controlled diet 2) Grind all food d/t difficulty chewing per pt request 3) Monitor need for ONS/resume double protein TID 4) Wt per rx Addendum: 01/15/19 at [address] Amended: Links added.
[2019-01-15 13:14] LABS: MAGNESIUM 1.8 MG/DL (1.5-2.4)
[2019-01-15] MEDS ORDERED: TESTOSTERONE CYPIONATE 200 MG/ML VIAL IM ONE ×2 (15:10→16:05)
--- NOTE | 2019-01-15 20:30 | NUR ---
when obtaining the cadd numbers for documentation, I cleared the numbers accidently. I cleared the totals from the start of the cadd machine (01/14/2019 @ 10:12) Total deliveries: 62, Total attempts: 75 total dose given 12.40 remaining volume 36.2 ml. Documented in [employer] but because i cleared the numbers, the amounts will now stem from 01/15/2019 18:38 pm per the CADD machine when i cleared the numbers.
[2019-01-16] VITALS (21 sets, daily range): BP systolic 122–171; BP diastolic 64–82
[2019-01-16] MEDS: HYDROmorphone/NS 1 mg/ml CADD 50 ML IV SCH ×12 (01:30→23:00)
[2019-01-16 03:19] LABS: BASOPHILS # (AUTO) 0.1 X10'3 (0-0.2); EOSINOPHILS # (AUTO) 0.6 X10'3 (0-0.9); EOSINOPHILS % (AUTO) 5.6 % (0-6); HEMATOCRIT 29.5 % (42.0-52.0); LYMPHOCYTES # (AUTO) 0.6 X10'3 (1.1-4.8); LYMPHOCYTES % (AUTO) 5.5 % (21-51); MEAN CORPUSCULAR HEMOGLOBIN 29.5 PG (27.0-31.0); MEAN CORPUSCULAR HGB CONC 33.9 g/dL (33.0-36.5); MEAN CORPUSCULAR VOLUME 87.2 FL (78-98); MEAN PLATELET VOLUME 7.8 FL (7.4-10.4); MONOCYTES # (AUTO) 0.8 X10'3 (0-0.9); MONOCYTES % (AUTO) 7.9 % (2-12); NEUTROPHILS # (AUTO) 8.4 X10'3 (1.8-7.7); PLATELET COUNT 265 X10'3 (140-440); RED BLOOD COUNT 3.38 X10'6 (4.70-6.10); RED CELL DISTRIBUTION WIDTH 17.8 % (11.5-14.5); WHITE BLOOD COUNT 10.4 X10'3 (4.5-11.0)
[2019-01-16 03:35] LABS: ALANINE AMINOTRANSFERASE 174 U/L (12-78); ALBUMIN 1.8 G/DL (3.4-5.0); ALBUMIN/GLOBULIN RATIO 0.5 (1.1-1.5); ALKALINE PHOSPHATASE 78 IU/L (46-116); ANION GAP 3 (8-16); ASPARTATE AMINO TRANSFERASE 81 U/L (10-37); BLOOD UREA NITROGEN 41 MG/DL (7-18); BUN/CREATININE RATIO 30.6 (5.4-32.0); CALCIUM 8.2 MG/DL (8.5-10.1); CHLORIDE 105 MMOL/L (99-107); CREATININE 1.34 MG/DL (0.60-1.10); GLUCOSE 117 MG/DL (70-104); POTASSIUM 4.3 MMOL/L (3.5-5.1); SODIUM 137 MMOL/L (135-145); TOTAL CARBON DIOXIDE 29.4 MMOL/L (24-32); TOTAL PROTEIN 5.8 G/DL (6.4-8.2); eGFR 58 ML/MIN
[2019-01-16] MEDS: ipratropium/albuterol 3ml nebule NEB SCH ×4 (03:39→20:40)
[2019-01-16] MEDS: losartan 50mg tablet OGT SCH (08:28)
[2019-01-16] MEDS: lactobacillus rhamnosus 10,000 MMU CELLS/CAPSULE NG SCH ×2 (08:28→20:01)
[2019-01-16] MEDS: VANCOmycin 1250MG/NS 250ml Bag 250 ML IV SCH ×2 (08:28→20:02)
[2019-01-16] MEDS: amiodarone 200mg tablet OGT SCH (08:28)
[2019-01-16] MEDS ORDERED: docusate sod 100mg capsule PO ONE (08:40)
[2019-01-16] MEDS: LORazepam 2 mg/ml vial IV PRN ×2 (15:02→21:32)
[2019-01-16] MEDS ORDERED: VANCOMYCIN LEVEL IV ONE (19:30)
[2019-01-16] MEDS ORDERED: acetaminophen 325mg tablet OGT PRN (19:35)
[2019-01-16] MEDS ORDERED: acetaminophen 325mg tablet PO PRN (19:36)
[2019-01-16] MEDS: docusate sod 100mg capsule PO SCH (20:02)
[2019-01-16] MEDS: acetaminophen 325mg tablet PO PRN (20:02)
[2019-01-17] VITALS (24 sets, daily range): BP systolic 138–182; BP diastolic 66–89
[2019-01-17] MEDS: HYDROmorphone/NS 1 mg/ml CADD 50 ML IV SCH ×12 (01:00→22:41)
[2019-01-17] MEDS: ipratropium/albuterol 3ml nebule NEB SCH ×4 (02:50→20:44)
[2019-01-17] MEDS: LORazepam 2 mg/ml vial IV PRN ×4 (03:24→23:59)
--- NOTE | 2019-01-17 06:46 | NUR ---
Patient in room CICU 2009. I have received report from HEIKE Guan and had the opportunity to ask questions and assume patient care.
[2019-01-17] MEDS: VANCOmycin 1250MG/NS 250ml Bag 250 ML IV SCH ×2 (07:28→19:39)
[2019-01-17] MEDS: docusate sod 100mg capsule PO SCH ×2 (07:28→19:38)
[2019-01-17] MEDS: losartan 50mg tablet OGT SCH (07:28)
[2019-01-17] MEDS: lactobacillus rhamnosus 10,000 MMU CELLS/CAPSULE NG SCH ×2 (07:28→19:38)
[2019-01-17] MEDS: methylnaltrexone br 12mg/0.6ml inj***SubQ only SQ SCH (07:28)
[2019-01-17 09:52] LABS: BASOPHILS # (AUTO) 0.1 X10'3 (0-0.2); BASOPHILS % (AUTO) 0.9 % (0-1); EOSINOPHILS # (AUTO) 0.4 X10'3 (0-0.9); EOSINOPHILS % (AUTO) 3.2 % (0-6); HEMATOCRIT 31.6 % (42.0-52.0); HEMOGLOBIN 10.6 g/dl (14.0-17.9); LYMPHOCYTES # (AUTO) 0.8 X10'3 (1.1-4.8); LYMPHOCYTES % (AUTO) 5.7 % (21-51); MEAN CORPUSCULAR HEMOGLOBIN 29.6 PG (27.0-31.0); MEAN CORPUSCULAR HGB CONC 33.6 g/dL (33.0-36.5); MEAN CORPUSCULAR VOLUME 88.2 FL (78-98); MEAN PLATELET VOLUME 8.3 FL (7.4-10.4); MONOCYTES % (AUTO) 7.9 % (2-12); NEUTROPHILS # (AUTO) 10.8 X10'3 (1.8-7.7); NEUTROPHILS % (AUTO) 82.3 % (42-75); PLATELET COUNT 298 X10'3 (140-440); RED BLOOD COUNT 3.58 X10'6 (4.70-6.10); WHITE BLOOD COUNT 13.2 X10'3 (4.5-11.0)
[2019-01-17 10:01] LABS: ALANINE AMINOTRANSFERASE 174 U/L (12-78); ALBUMIN/GLOBULIN RATIO 0.5 (1.1-1.5); ALKALINE PHOSPHATASE 96 IU/L (46-116); ANION GAP 4 (8-16); ASPARTATE AMINO TRANSFERASE 65 U/L (10-37); BILIRUBIN,TOTAL 1.1 MG/DL (0.1-1.0); BLOOD UREA NITROGEN 30 MG/DL (7-18); BUN/CREATININE RATIO 22.9 (5.4-32.0); CHLORIDE 106 MMOL/L (99-107); CREATININE 1.31 MG/DL (0.60-1.10); GLUCOSE 160 MG/DL (70-104); POTASSIUM 4.3 MMOL/L (3.5-5.1); SODIUM 137 MMOL/L (135-145); TOTAL CARBON DIOXIDE 26.7 MMOL/L (24-32); TOTAL PROTEIN 6.2 G/DL (6.4-8.2); eGFR 60 ML/MIN
[2019-01-17] MEDS: acetaminophen 325mg tablet PO PRN (12:09)
--- NOTE | 2019-01-17 16:43 | NUR ---
Dsg change completed this afternoon. Pt refused PT x2 today. Sat up on side of bed with RN per pt's wishes twice but requested to walk with PT tomorrow instead.
--- NOTE | 2019-01-17 17:52 | NUR ---
Chest tube to water seal per Dr. Ortega's orders
--- NOTE | 2019-01-17 18:08 | NUR ---
Problems reprioritized. Patient report given, questions answered & plan of care reviewed with HEIKE Guan.
[2019-01-17] MEDS: metoprolol tartrate 25mg tablet PO SCH (19:39)
[2019-01-17] MEDS: heparin, porcine 5000 units/ml vial SQ SCH (23:59)
[2019-01-18] VITALS (23 sets, daily range): BP systolic 135–191; BP diastolic 57–95
[2019-01-18] MEDS: HYDROmorphone/NS 1 mg/ml CADD 50 ML IV SCH ×12 (00:58→23:00)
[2019-01-18] MEDS: ipratropium/albuterol 3ml nebule NEB SCH ×4 (03:00→20:34)
--- NOTE | 2019-01-18 06:12 | NUR ---
Patient in room CICU 2009. I have received report from HEIKE Guan and had the opportunity to ask questions and assume patient care.
[2019-01-18] MEDS: docusate sod 100mg capsule PO SCH ×2 (07:20→20:23)
[2019-01-18] MEDS: VANCOmycin 1250MG/NS 250ml Bag 250 ML IV SCH ×2 (07:20→20:23)
[2019-01-18] MEDS: heparin, porcine 5000 units/ml vial SQ SCH ×3 (07:20→23:55)
[2019-01-18] MEDS: lactobacillus rhamnosus 10,000 MMU CELLS/CAPSULE NG SCH ×2 (07:20→20:23)
[2019-01-18] MEDS: metoprolol tartrate 25mg tablet PO SCH ×2 (07:21→20:24)
[2019-01-18] MEDS: losartan 50mg tablet OGT SCH (07:21)
[2019-01-18 10:05] LABS: BASOPHILS # (AUTO) 0.1 X10'3 (0-0.2); BASOPHILS % (AUTO) 0.8 % (0-1); EOSINOPHILS # (AUTO) 0.5 X10'3 (0-0.9); EOSINOPHILS % (AUTO) 3.4 % (0-6); HEMATOCRIT 31.9 % (42.0-52.0); HEMOGLOBIN 10.6 g/dl (14.0-17.9); LYMPHOCYTES # (AUTO) 0.9 X10'3 (1.1-4.8); LYMPHOCYTES % (AUTO) 6.1 % (21-51); MEAN CORPUSCULAR HEMOGLOBIN 29.1 PG (27.0-31.0); MEAN CORPUSCULAR HGB CONC 33.3 g/dL (33.0-36.5); MEAN CORPUSCULAR VOLUME 87.5 FL (78-98); MEAN PLATELET VOLUME 8.3 FL (7.4-10.4); MONOCYTES # (AUTO) 1.1 X10'3 (0-0.9); MONOCYTES % (AUTO) 7.5 % (2-12); NEUTROPHILS # (AUTO) 12.2 X10'3 (1.8-7.7); NEUTROPHILS % (AUTO) 82.2 % (42-75); PLATELET COUNT 311 X10'3 (140-440); RED BLOOD COUNT 3.64 X10'6 (4.70-6.10); RED CELL DISTRIBUTION WIDTH 18.6 % (11.5-14.5); WHITE BLOOD COUNT 14.8 X10'3 (4.5-11.0)
[2019-01-18 10:18] LABS: ALANINE AMINOTRANSFERASE 173 U/L (12-78); ALBUMIN 2.1 G/DL (3.4-5.0); ALBUMIN/GLOBULIN RATIO 0.5 (1.1-1.5); ALKALINE PHOSPHATASE 100 IU/L (46-116); ANION GAP 6 (8-16); ASPARTATE AMINO TRANSFERASE 71 U/L (10-37); BLOOD UREA NITROGEN 25 MG/DL (7-18); BUN/CREATININE RATIO 19.8 (5.4-32.0); CALCIUM 8.4 MG/DL (8.5-10.1); CHLORIDE 106 MMOL/L (99-107); CREATININE 1.26 MG/DL (0.60-1.10); GLUCOSE 157 MG/DL (70-104); POTASSIUM 4.3 MMOL/L (3.5-5.1); SODIUM 138 MMOL/L (135-145); TOTAL CARBON DIOXIDE 25.7 MMOL/L (24-32); TOTAL PROTEIN 6.5 G/DL (6.4-8.2); eGFR 62 ML/MIN
--- NOTE | 2019-01-18 12:03 | NUR ---
I have reviewed and agree with all medications administered and interventions performed by [employer] Student(anjel maier}
--- NOTE | 2019-01-18 14:02 | NUR ---
Alvarado catheter and chest tubes removed without complications.
[2019-01-18] MEDS: LORazepam 2 mg/ml vial IV PRN ×2 (16:15→23:55)
[2019-01-18] MEDS: acetaminophen 325mg tablet PO PRN (16:19)
--- NOTE | 2019-01-18 16:27 | NUR ---
Reassessment: Pt continues with 25-49% PO Intake mechanical soft CHO controlled with ground meats per pt request and is receiving double protein. RD visited patient at bedside d/t poor PO intake, patient has specific food preferences obtained by RD including the followin hard boiled eggs with breakfast, coffee, milk, muffin, and request for ensure high protein with all meals. Patient request peanut butter and jelly sandwich for each lunch and dinner. Explained to patient that due to his carb controlled diet that would be the only carb food we could send as it is 54 grams of carbs. Pt verbalized understanding. Discussed above with dietary. LBM 01/17. No GI symptoms. Pending chest tube removal. Pt s/p thoracotomy with evacuation of hemothorax has left chest surgical wound and increased protein needs for wound heal. Will continue to follow. Recommendations: 1) Continue [facility] soft CHO controlled diet 2) 4 hard boiled eggs with breakfast 3) honor food preferences within the carb controlled diet, alternative food list given 4) Wt per rx Addendum: 01/18/19 at [address] Amended: Links added.
--- NOTE | 2019-01-18 18:17 | NUR ---
Problems reprioritized. Patient report given, questions answered & plan of care reviewed with HEIKE Guan.
--- NOTE | 2019-01-18 22:22 | NUR ---
patient ekg shows occasional pauses. See bedside chart. Lopressor dose was given near 1999. Will continue to monitor. Patient does not c/o dizziness or SOB. VS otherwise stable.
[2019-01-19] VITALS (20 sets, daily range): BP systolic 121–174; BP diastolic 71–100
--- NOTE | 2019-01-19 | NUR ---
patient insists the nibp cuff be off so he can sleep. I told patient i would have to come in intermittently to get bp. he said that was ok but that he will not wear it while sleeping. Patients BP has been stable for many days. I will get BP when I enter the room while he is not sleeping so patient my try to get some sleep
[2019-01-19] MEDS: HYDROmorphone/NS 1 mg/ml CADD 50 ML IV SCH ×6 (00:57→11:00)
[2019-01-19] MEDS: ipratropium/albuterol 3ml nebule NEB SCH ×4 (02:41→20:04)
[2019-01-19 05:20] LABS: BASOPHILS # (AUTO) 0.2 X10'3 (0-0.2); BASOPHILS % (AUTO) 1.4 % (0-1); EOSINOPHILS # (AUTO) 0.5 X10'3 (0-0.9); EOSINOPHILS % (AUTO) 4.1 % (0-6); HEMATOCRIT 29.1 % (42.0-52.0); LYMPHOCYTES % (AUTO) 7.5 % (21-51); MEAN CORPUSCULAR HEMOGLOBIN 29.9 PG (27.0-31.0); MEAN CORPUSCULAR HGB CONC 34.3 g/dL (33.0-36.5); MEAN CORPUSCULAR VOLUME 87.2 FL (78-98); MEAN PLATELET VOLUME 8.4 FL (7.4-10.4); MONOCYTES # (AUTO) 1.1 X10'3 (0-0.9); MONOCYTES % (AUTO) 8.5 % (2-12); NEUTROPHILS % (AUTO) 78.5 % (42-75); PLATELET COUNT 305 X10'3 (140-440); RED BLOOD COUNT 3.33 X10'6 (4.70-6.10); RED CELL DISTRIBUTION WIDTH 18.8 % (11.5-14.5); WHITE BLOOD COUNT 12.7 X10'3 (4.5-11.0)
[2019-01-19 05:42] LABS: ALANINE AMINOTRANSFERASE 172 U/L (12-78); ALBUMIN 2.2 G/DL (3.4-5.0); ALBUMIN/GLOBULIN RATIO 0.5 (1.1-1.5); ALKALINE PHOSPHATASE 101 IU/L (46-116); ANION GAP 9 (8-16); ASPARTATE AMINO TRANSFERASE 70 U/L (10-37); BILIRUBIN,TOTAL 0.8 MG/DL (0.1-1.0); BLOOD UREA NITROGEN 24 MG/DL (7-18); BUN/CREATININE RATIO 18.3 (5.4-32.0); CALCIUM 8.2 MG/DL (8.5-10.1); CHLORIDE 106 MMOL/L (99-107); CREATININE 1.31 MG/DL (0.60-1.10); GLUCOSE 134 MG/DL (70-104); POTASSIUM 4.1 MMOL/L (3.5-5.1); SODIUM 141 MMOL/L (135-145); TOTAL CARBON DIOXIDE 25.6 MMOL/L (24-32); TOTAL PROTEIN 6.4 G/DL (6.4-8.2); eGFR 60 ML/MIN
--- NOTE | 2019-01-19 07:36 | NUR ---
Patient in room CICU 2009. I have received report from Roge BURROUGHS and had the opportunity to ask questions and assume patient care. Patient sitting up in bed, conversing with staff, vital signs stable, checked blood pressure, he states he refused to wear blood pressure cuff. Stated that he would like to be transfered out of this unit as he is unable to sleep due to " the noisy patient next door"
[2019-01-19] MEDS: VANCOmycin 1250MG/NS 250ml Bag 250 ML IV SCH (07:50)
[2019-01-19] MEDS: docusate sod 100mg capsule PO SCH ×2 (07:51→20:32)
[2019-01-19] MEDS: metoprolol tartrate 25mg tablet PO SCH ×2 (07:51→20:36)
[2019-01-19] MEDS: losartan 50mg tablet OGT SCH (07:51)
[2019-01-19] MEDS: lactobacillus rhamnosus 10,000 MMU CELLS/CAPSULE NG SCH ×2 (07:51→20:32)
[2019-01-19] MEDS: heparin, porcine 5000 units/ml vial SQ SCH ×2 (07:51→16:00)
[2019-01-19] MEDS: methylnaltrexone br 12mg/0.6ml inj***SubQ only SQ SCH (07:52)
--- NOTE | 2019-01-19 09:21 | NUR ---
I have reviewed and agree with all medications administered and interventions performed by [facility] Student Keya Dotson Addendum: 01/19/19 at 0921 by Aditya [address]more RT Amended: Links added.
--- NOTE | 2019-01-19 10:20 | NUR ---
patient up with physial therapy walked 600 feet tolerated well vital signs stable
--- NOTE | 2019-01-19 13:00 | NUR ---
Dr Ortega came by to assess patient, stated that he can go to [facility] with tele, saline lock patient, D/c CADD, po 10/325 percocet Q4 PRN pain,with 1mg dilaudid Q4 PRN for break through pain and to D/C vanco and start zyvox 600mg po bid. No other new orders
[2019-01-19] MEDS ORDERED: HYDROmorphone 1 mg/ml syringe IV PRN (13:20)
[2019-01-19] MEDS: oxyCODONE/APAP 10/325mg tablet PO PRN ×2 (16:13→20:32)
--- NOTE | 2019-01-19 18:30 | NUR ---
Problems reprioritized. Patient report given, questions answered & plan of care reviewed with Roge BURROUGHS.
[2019-01-19] MEDS: linezolid 600mg tablet PO SCH (20:33)
--- NOTE | 2019-01-19 21:00 | NUR ---
I got report CICU HEIKE Guan at 1940 and had a chance to go over plan of care and ask questions. Patient arrived via wheelchair at 2100 in no apparent distress. Spoke with pt and went ovwer his plan of care for tonight. Girlfriend at bedside
[2019-01-19] MEDS: LORazepam 2 mg/ml vial IV PRN (23:37)
--- NOTE | 2019-01-19 23:50 | NUR ---
pulled up Dilaudid for patient and he decided that he wanted the percocet instead. Jazmyn conveyor line battery charger nurse watched me waste the Dilaudid.
[2019-01-20] VITALS: BP 160/81
[2019-01-20] MEDS: heparin, porcine 5000 units/ml vial SQ SCH ×4 (00:02→23:12)
[2019-01-20] MEDS: oxyCODONE/APAP 10/325mg tablet PO PRN ×6 (00:11→21:10)
[2019-01-20] MEDS: ipratropium/albuterol 3ml nebule NEB SCH ×4 (02:53→20:41)
[2019-01-20] MEDS: acetaminophen 325mg tablet PO PRN (03:03)
[2019-01-20 05:43] LABS: ALANINE AMINOTRANSFERASE 156 U/L (12-78); ALBUMIN 2.2 G/DL (3.4-5.0); ALBUMIN/GLOBULIN RATIO 0.5 (1.1-1.5); ALKALINE PHOSPHATASE 98 IU/L (46-116); ANION GAP 7 (8-16); ASPARTATE AMINO TRANSFERASE 57 U/L (10-37); BILIRUBIN,TOTAL 0.7 MG/DL (0.1-1.0); BLOOD UREA NITROGEN 22 MG/DL (7-18); BUN/CREATININE RATIO 15.7 (5.4-32.0); CHLORIDE 106 MMOL/L (99-107); GLUCOSE 144 MG/DL (70-104); SODIUM 141 MMOL/L (135-145); TOTAL CARBON DIOXIDE 28.3 MMOL/L (24-32); TOTAL PROTEIN 6.4 G/DL (6.4-8.2); eGFR 55 ML/MIN
--- NOTE | 2019-01-20 06:29 | NUR ---
Problems reprioritized. Patient report given, questions answered & plan of care reviewed with Emmie BURROUGHS.
[2019-01-20] MEDS ORDERED: nystatin 15 GM powder TP PRN (06:40)
[2019-01-20 07:00] VITALS: BP 179/92
[2019-01-20] MEDS: docusate sod 100mg capsule PO SCH ×2 (08:37→20:00)
[2019-01-20] MEDS: metoprolol tartrate 25mg tablet PO SCH ×2 (08:37→20:00)
[2019-01-20] MEDS: lactobacillus rhamnosus 10,000 MMU CELLS/CAPSULE NG SCH (09:02)
[2019-01-20] MEDS: losartan 50mg tablet OGT SCH (09:03)
[2019-01-20] MEDS: linezolid 600mg tablet PO SCH ×2 (09:03→20:00)
[2019-01-20] MEDS ORDERED: losartan 50mg tablet PO SCH (09:09)
[2019-01-20 11:56] VITALS: BP 152/85
[2019-01-20] MEDS ORDERED: methylnaltrexone br 12mg/0.6ml inj***SubQ only SQ SCH (12:29)
[2019-01-20] MEDS: magnesium hydroxide 30ml (MOM) UD suspension PO PRN ×2 (17:14→21:10)
--- NOTE | 2019-01-20 18:24 | NUR ---
Problems reprioritized. Patient report given, questions answered & plan of care reviewed with HEIKE Dent .
[2019-01-20 20:00] VITALS: BP 155/94
[2019-01-20] MEDS: lactobacillus rhamnosus 10,000 MMU CELLS/CAPSULE PO SCH (20:00)
[2019-01-20] MEDS: LORazepam 2 mg/ml vial IV PRN (23:12)
[2019-01-20 23:45] VITALS: BP 162/92
[2019-01-21] MEDS: oxyCODONE/APAP 10/325mg tablet PO PRN ×5 (01:03→17:26)
[2019-01-21] MEDS: ipratropium/albuterol 3ml nebule NEB SCH ×3 (03:00→14:46)
--- NOTE | 2019-01-21 06:30 | NUR ---
Patient in room [facility]CO A 341. I have received report from HEIKE Dent and had the opportunity to ask questions and assume patient care.
[2019-01-21 08:00] VITALS: BP 169/97
[2019-01-21] MEDS: heparin, porcine 5000 units/ml vial SQ SCH ×2 (08:00→16:00)
[2019-01-21] MEDS: docusate sod 100mg capsule PO SCH (08:25)
[2019-01-21] MEDS: lactobacillus rhamnosus 10,000 MMU CELLS/CAPSULE PO SCH (08:25)
[2019-01-21] MEDS: metoprolol tartrate 25mg tablet PO SCH (08:26)
[2019-01-21] MEDS: linezolid 600mg tablet PO SCH (09:38)
[2019-01-21 11:00] VITALS: BP 157/85
--- NOTE | 2019-01-21 12:08 | NUR ---
Laquita pathology secretary came to desk and advised me that patient refused to let her empty trash in room because he wanted it to help keep the door open. Also, patient refused to let her mop his room at this time.
[2019-01-21] MEDS ORDERED: METO25TA6 PO (12:49)
[2019-01-21] MEDS ORDERED: TADA5TAB2 PO (12:49)
[2019-01-21] MEDS ORDERED: LINE600T14 PO (12:49)
[2019-01-21] MEDS ORDERED: METF500T7 PO (12:49)
--- NOTE | 2019-01-21 13:14 | NUR ---
Reassessment: Patient's PO intake appears to be improving. Documented with 0% PO intake a lunch 01/20 however with 100% PO intake all other meals 01/20 and at breakfast this morning. Pt still receiving requested food for meals and with Ensure High Protein TID. Per MD notes chest tube is out, MARIS resolved, and hemoglobin fairly stable. LBM 7/. Will continue to follow. Reassessment: Pt continues with 25-49% PO Intake mechanical soft CHO controlled with ground meats per pt request and is receiving double protein. RD visited patient at bedside d/t poor PO intake, patient has specific food preferences obtained by RD including the followin hard boiled eggs with breakfast, coffee, milk, muffin, and request for ensure high protein with all meals. Patient request peanut butter and jelly sandwich for each lunch and dinner. Explained to patient that due to his carb controlled diet that would be the only carb food we could send as it is 54 grams of carbs. Pt verbalized understanding. Discussed above with dietary. LBM 7. No GI symptoms. Pending chest tube removal. Pt s/p thoracotomy with evacuation of hemothorax has left chest surgical wound and increased protein needs for wound heal. Will continue to follow. Recommendations: 1) Continue [facility] soft CHO controlled diet 2) 4 hard boiled eggs with breakfast 3) honor food preferences within the carb controlled diet, alternative food list given 4) Chocolate Ensure High Protein TID 5) Wt per rx Addendum: 01/21/19 at [address] Amended: Links added.
[2019-01-21] MEDS ORDERED: magnesium hydroxide 30ml (MOM) UD suspension PO ONE (13:25)
[2019-01-21] MEDS ORDERED: HYDR-4353 PO (13:30)
--- NOTE | 2019-01-21 17:53 | NUR ---
reviewed discharge instructions and rx with pt, pt verbalized understanding. Coupon for Linezolid obtained from case management and given to pt for rx. Rx called to pts pharmacy and written rx given to pt for [place]. VS stable throughout the day. Pain managed with Percocet. Safety maintained as pt ambulated around the unit many times this shift. IV's removed and pt escorted to vehicle for d/c.
== END 2019-01-21 18:00 | disposition home or self-care (01) | DRG 853 ==
LOC: ER 19:03 → EEVIPCON 19:03 → PCU 3S 01-02 12:47 → EDBEDREQ 01-02 13:28 → CMPBEDREQ 01-04 19:53 → ICU 2S 01-07 19:11 → CICU 2S 01-07 19:15 → SUR 3N 01-19 21:04
PROVIDERS: ADMIT Internal Medicine; ATTEND Internal Medicine Critical Care Medicine
PROC: B32T1ZZ Computerized Tomography (CT Scan) of Left Pulmonary Artery using Low Osmolar Contrast (ICD-10-PCS; 2019-01-02)
PROC: B3201ZZ Computerized Tomography (CT Scan) of Thoracic Aorta using Low Osmolar Contrast (ICD-10-PCS; 2019-01-02)
PROC: B32S1ZZ Computerized Tomography (CT Scan) of Right Pulmonary Artery using Low Osmolar Contrast (ICD-10-PCS; 2019-01-02)
PROC: 0W9B30Z Drainage of Left Pleural Cavity with Drainage Device, Percutaneous Approach (ICD-10-PCS; 2019-01-03)
PROC: 0BNJ0ZZ Release Left Lower Lung Lobe, Open Approach (ICD-10-PCS; 2019-01-07)
PROC: 0BNG0ZZ Release Left Upper Lung Lobe, Open Approach (ICD-10-PCS; 2019-01-07)
PROC: 0BH17EZ Insertion of Endotracheal Airway into Trachea, Via Natural or Artificial Opening (ICD-10-PCS; 2019-01-07)
PROC: 0W9B00Z Drainage of Left Pleural Cavity with Drainage Device, Open Approach (ICD-10-PCS; 2019-01-07)
PROC: 30233N1 Transfusion of Nonautologous Red Blood Cells into Peripheral Vein, Percutaneous Approach (ICD-10-PCS; 2019-01-07)
PROC: 0B9P0ZZ Drainage of Left Pleura, Open Approach (ICD-10-PCS; 2019-01-07)
PROC: 0B978ZZ Drainage of Left Main Bronchus, Via Natural or Artificial Opening Endoscopic (ICD-10-PCS; 2019-01-07)
PROC: 5A1955Z Respiratory Ventilation, Greater than 96 Consecutive Hours (ICD-10-PCS; principal; 2019-01-07 16:30)
PROC: 0B978ZZ Drainage of Left Main Bronchus, Via Natural or Artificial Opening Endoscopic (ICD-10-PCS; 2019-01-08)
PROC: 30233N1 Transfusion of Nonautologous Red Blood Cells into Peripheral Vein, Percutaneous Approach (ICD-10-PCS; 2019-01-10)
PROC: 0B978ZZ Drainage of Left Main Bronchus, Via Natural or Artificial Opening Endoscopic (ICD-10-PCS; 2019-01-11)
PROC: 0B938ZZ Drainage of Right Main Bronchus, Via Natural or Artificial Opening Endoscopic (ICD-10-PCS; 2019-01-11)
DX: A41.9 Sepsis, unspecified organism (principal); J85.0 Gangrene and necrosis of lung; J96.00 Acute respiratory failure, unspecified whether with hypoxia or hypercapnia; R04.2 Hemoptysis; J98.11 Atelectasis; N17.9 Acute kidney failure, unspecified; Z99.11 Dependence on respirator [ventilator] status; J91.8 Pleural effusion in other conditions classified elsewhere; J94.2 Hemothorax; R74.0 Nonspecific elevation of levels of transaminase and lactic acid dehydrogenase [LDH]; E87.5 Hyperkalemia; D64.9 Anemia, unspecified; M25.512 Pain in left shoulder; F14.10 Cocaine abuse, uncomplicated; J45.909 Unspecified asthma, uncomplicated; E11.9 Type 2 diabetes mellitus without complications; I10 Essential (primary) hypertension; I48.0 Paroxysmal atrial fibrillation; Z79.84 Long term (current) use of oral hypoglycemic drugs; Z79.899 Other long term (current) drug therapy; Z87.891 Personal history of nicotine dependence; Z91.030 Bee allergy status; Z71.51 Drug abuse counseling and surveillance of drug abuser; I95.9 Hypotension, unspecified
CPT/HCPCS: 31628; 32557; 93306; 96365; 96366; 96367; 96368; 96375; 96376; 99291; Z7506; Z7508; 36415; 36600; 71045; 71046; 71250; 71260; 71275; 74018; 74176; 74177; 80047; 80048; 80053; 80069; 80202; 80305; 81001; 82330; 82570; 82803; 82810; 82945; 82948; 83036; 83605; 83735; 83880; 84100; 84132; 84134; 84145; 84300; 84484; 85018; 85025; 85027; 85379; 85384; 85610; 85730; 86885; 86900; 86901; 86920; 87040; 87070; 87075; 87077; 87081; 87102; 87186; 89051; 92508; 92616; 93005; 93308; 94002; 94003; 94640; 94667; 94668; 94760; 97116; 97162; 97530; A6449; A7000; A7048; C1758; C9250; G0378; J0282; J0330; J0456; J0610; J0690; J0696; J1170; J1250; J1580; J1644; J1815; J1940; J1956; J2020; J2060; J2212; J2250; J2270; J2370; J2543; J2704; J3010; J3370; J3490; J7030; J7050; J7060; J7070; J7120; P9016; P9045; P9047; Q9967

== ENCOUNTER 2024-07-19 19:04 | Emergency (ER) | payer MEDICAID ==
[~2024-07-19] VITALS: Ht 182.9 cm; Wt 101.3 kg
[~2024-07-19 19:04] MED LIST: LINE600T14 PO; LOP25T PO; LOSA1TAB41 PO; METF-900 PO
[2024-07-19 19:43] VITALS: BP 173/112; PULSE 93; RESP 18; TEMP 98.6; O2SAT 95
== END 2024-07-20 00:36 | disposition left against medical advice (07) ==
LOC: ER 19:04
DX: R10.9 Unspecified abdominal pain (principal); Z91.030 Bee allergy status; Z53.21 Procedure and treatment not carried out due to patient leaving prior to being seen by health care provider

== ENCOUNTER 2024-08-24 23:03 | Emergency (ER) | payer MEDICAID ==
[~2024-08-24] VITALS: Ht 182.9 cm; Wt 93.5 kg
[2024-08-24 23:56] LABS: BASOPHILS # (AUTO) 0.1 X10'3 (0-0.2); BASOPHILS % (AUTO) 0.7 % (0-1); EOSINOPHILS # (AUTO) 0.6 X10'3 (0-0.9); EOSINOPHILS % (AUTO) 4.8 % (0-6); HEMATOCRIT 48.2 % (42.0-52.0); HEMOGLOBIN 16.4 g/dl (14.0-17.9); LYMPHOCYTES # (AUTO) 1.4 X10'3 (1.1-4.8); LYMPHOCYTES % (AUTO) 11.7 % (21-51); MEAN CORPUSCULAR HEMOGLOBIN 29.8 PG (27.0-31.0); MEAN CORPUSCULAR VOLUME 87.6 FL (78-98); MONOCYTES # (AUTO) 0.8 X10'3 (0-0.9); MONOCYTES % (AUTO) 6.3 % (2-12); NEUTROPHILS # (AUTO) 9.3 X10'3 (1.8-7.7); NEUTROPHILS % (AUTO) 76.5 % (42-75); PLATELET COUNT 187 X10'3 (140-440); RED CELL DISTRIBUTION WIDTH 13.7 % (11.5-14.5); WHITE BLOOD COUNT 12.2 X10'3 (4.5-11.0)
[2024-08-25 00:10] LABS: ALANINE AMINOTRANSFERASE 111 U/L (12-78); ALBUMIN/GLOBULIN RATIO 0.8 (1.1-1.5); ALKALINE PHOSPHATASE 57 IU/L (46-116); ANION GAP 5 (8-16); ASPARTATE AMINO TRANSFERASE 68 U/L (10-37); BILIRUBIN,TOTAL 0.4 MG/DL (0.1-1.0); BLOOD UREA NITROGEN 17 MG/DL (7-18); BUN/CREATININE RATIO 18.5 (10.0-20.0); CALCIUM 8.5 MG/DL (8.5-10.1); CHLORIDE 107 MMOL/L (99-107); CREATININE 0.92 MG/DL (0.60-1.10); GLUCOSE 148 MG/DL (70-104); LIPASE 35 U/L (16-77); POTASSIUM 3.9 MMOL/L (3.5-5.1); SODIUM 141 MMOL/L (135-145); TOTAL CARBON DIOXIDE 29.2 MMOL/L (24-32); TOTAL PROTEIN 6.6 G/DL (6.4-8.2); eCRCL 108 ML/MIN; eGFR 88 ML/MIN
[2024-08-25 00:34] LABS: BILIRUBIN,URINE NEGATIVE (Neg); CLARITY,URINE CLEAR (Clear); COLOR,URINE YELLOW (Yellow); GLUCOSE, URINE NEGATIVE (Neg); KETONES,URINE NEGATIVE (Neg); LEUKOCYTE ESTERASE ,URINE NEGATIVE (Neg); NITRITES, URINE NEGATIVE (Neg); OCCULT BLOOD,URINE TRACE-INTACT (Neg); PH,URINE 7.5 (4.8-8.0); PROTEIN,URINE 100 mg/dl (Neg); UROBILINOGEN,URINE 0.2 E.U/dL (0.2-1.0)
[2024-08-25 00:40] LABS: UA COLLECTION TYPE URINAL
[2024-08-25 00:41] LABS: BACTERIA,URINE 1+ /HPF (Neg); RBC,URINE 0-2 /HPF (0-2); SQUAMOUS EPITHELIAL CELL,UR NONE SEEN /LPF (FEW); WBC,URINE 0-4 /HPF (0-4)
[2024-08-25] MEDS ORDERED: POLY119P2 PO (00:53)
[2024-08-25] MEDS ORDERED: DOCU-171 PO (00:53)
[2024-08-25] MEDS: methylnaltrexone br 12mg/0.6ml inj***SubQ only SQ ONE (01:06)
[2024-08-25 01:09] VITALS: BP 158/95; PULSE 98; RESP 16; TEMP 98.2; O2SAT 95
== END 2024-08-25 01:13 | disposition home or self-care (01) ==
LOC: ER 23:03
DX: K59.00 Constipation, unspecified (principal); J45.909 Unspecified asthma, uncomplicated; Z79.899 Other long term (current) drug therapy
CPT/HCPCS: 36415; 80053; 81001; 83690; 84145; 85025; 96372; 99284; J2212

== ENCOUNTER 2024-10-27 04:32 | Emergency (ER) | payer MEDICAID ==
[~2024-10-27] VITALS: Ht 182.9 cm; Wt 95.5 kg
[~2024-10-27 04:32] MED LIST changes: +DOCU-171 PO; +POLY119P2 PO
[2024-10-27] MEDS: LIDOcaine 1% 30ml preserv. free vial IJ STA (05:15)
[2024-10-27] MEDS ORDERED: VANCOMYCIN 2GM/400ML H20 (PEG) 400 ML IV ONE (05:50)
[2024-10-27] MEDS ORDERED: CEPH500C2 PO (06:10)
[2024-10-27] MEDS ORDERED: DOXY-224 PO (06:10)
[2024-10-27] MEDS: vancomycin/NS 1 GM ADD-VANTAGE 250 ML X 1 DOSE IV STA (06:19)
[2024-10-27] MEDS: piperacillin/tazo 4.5gm/100ml 100 ML IV ONE (06:19)
[2024-10-27 06:23] LABS: BASOPHILS # (AUTO) 0.1 X10'3 (0-0.2); BASOPHILS % (AUTO) 0.7 % (0-1); EOSINOPHILS # (AUTO) 0.5 X10'3 (0-0.9); HEMATOCRIT 42.7 % (42.0-52.0); HEMOGLOBIN 14.6 g/dl (14.0-17.9); LYMPHOCYTES # (AUTO) 1.4 X10'3 (1.1-4.8); MEAN CORPUSCULAR HGB CONC 34.1 g/dL (33.0-36.5); MEAN CORPUSCULAR VOLUME 87.9 FL (78-98); MONOCYTES # (AUTO) 0.9 X10'3 (0-0.9); MONOCYTES % (AUTO) 7.6 % (2-12); NEUTROPHILS # (AUTO) 8.8 X10'3 (1.8-7.7); NEUTROPHILS % (AUTO) 75.7 % (42-75); PLATELET COUNT 231 X10'3 (140-440); RED BLOOD COUNT 4.85 X10'6 (4.70-6.10); RED CELL DISTRIBUTION WIDTH 14.1 % (11.5-14.5); WHITE BLOOD COUNT 11.7 X10'3 (4.5-11.0)
[2024-10-27 06:32] LABS: ALBUMIN 2.8 G/DL (3.4-5.0); ANION GAP 3 (8-16); BLOOD UREA NITROGEN 19 MG/DL (7-18); BUN/CREATININE RATIO 20.9 (10.0-20.0); CALCIUM 8.6 MG/DL (8.5-10.1); CHLORIDE 108 MMOL/L (99-107); CREATININE 0.91 MG/DL (0.60-1.10); GLUCOSE 126 MG/DL (70-104); SODIUM 140 MMOL/L (135-145); TOTAL CARBON DIOXIDE 29.4 MMOL/L (24-32); eCRCL 109 ML/MIN; eGFR 89 ML/MIN
[2024-10-27 06:45] VITALS: BP 167/87; PULSE 83; RESP 18; O2SAT 97
[2024-10-27 09:02] VITALS: TEMP 98.4
[2024-10-27] MEDS ORDERED: vancomycin/NS 1 GM ADD-VANTAGE 250 ML IV SCH (14:00)
== END 2024-10-27 07:52 | disposition left against medical advice (07) ==
LOC: ER 04:33
DX: L03.011 Cellulitis of right finger (principal); J45.909 Unspecified asthma, uncomplicated
CPT/HCPCS: 10060; 36415; 80048; 85025; 85651; 86140; 87070; 87077; 87186; 96365; 96366; 96368; 99284; A6222; A6266; J2543; J3370; A6449

== ENCOUNTER 2024-10-27 16:59 | Emergency (ER) | payer MEDICAID ==
[~2024-10-27] VITALS: Ht 182.9 cm; Wt 92.0 kg
[~2024-10-27 16:59] MED LIST changes: +CEPH500C2 PO; +DOXY-224 PO
[2024-10-27] MEDS: ketorolac trometh 15mg/ml vial 15 MG/ML ML IV ONE (19:23)
[2024-10-27] MEDS: vancomycin/NS 1 GM ADD-VANTAGE 250 ML IV ONE (19:25)
[2024-10-27] MEDS: ceFAZolin/D5W- 1GM premix 50 ML IV ONE (20:15)
[2024-10-27 21:22] VITALS: BP 115/72; PULSE 82; RESP 16; O2SAT 96
[2024-10-27 21:23] VITALS: TEMP 98.6
[2024-10-28] MEDS ORDERED: ceFAZolin/D5W- 1GM premix 50 ML IV ONE (08:00)
== END 2024-10-27 21:25 | disposition left against medical advice (07) ==
LOC: ER 16:59
DX: L03.011 Cellulitis of right finger (principal); J45.909 Unspecified asthma, uncomplicated
CPT/HCPCS: 96365; 96366; 96368; 96375; 99284; A6222; J0690; J1885; J3370

== ENCOUNTER 2024-10-28 05:02 | Emergency (ER) | payer MEDICAID ==
[~2024-10-28] VITALS: Ht 167.6 cm; Wt 68.4 kg
[2024-10-28] MEDS: ceFAZolin/D5W- 1GM premix 50 ML IV ONE (06:32)
[2024-10-28] MEDS: ketorolac trometh 15mg/ml vial 15 MG/ML ML IV ONE (06:32)
[2024-10-28 06:37] VITALS: BP 138/86; PULSE 80; RESP 17; O2SAT 92
[2024-10-28] MEDS: vancomycin/NS 1 GM ADD-VANTAGE 250 ML X 1 DOSE IV ONE (06:45)
[2024-10-28] MEDS ORDERED: ceFAZolin/D5W- 1GM premix 50 ML IV ONE (08:00)
[2024-10-28 08:24] VITALS: TEMP 98
== END 2024-10-28 08:26 | disposition home or self-care (01) ==
LOC: ER 05:03
DX: L03.011 Cellulitis of right finger (principal); Z79.899 Other long term (current) drug therapy
CPT/HCPCS: 96365; 96368; 96375; 99284; A6222; J0690; J1885; J3370